=== PATIENT | female | born 1950 | race Caucasian/White ===

== ENCOUNTER 2025-01-15 16:25 | Emergency (ER) | payer MEDICARE, SELFPAY ==
--- NOTE | ~2025-01-15 | XR_ITS ---
CLINICAL HISTORY: post reduction 3 view right wrist Comparison: None Findings: Improved alignment of distal radial fracture. Stable fracture of ulnar styloid process. No dislocation. Interval cast placement. IMPRESSION: 1. Improved alignment of distal radial fracture and stable nondisplaced ulnar styloid process fracture. This document has been electronically signed by: Julia Lobato MD on 01/15/2025 23:25:30
--- NOTE | ~2025-01-15 | CT_ITS ---
CLINICAL HISTORY: Fall and hit head CT head without contrast Comparison: None Findings: Involutional change and nonspecific white matter hypodensity. No intracranial mass, midline shift, hydrocephalus, or acute hemorrhage. Orbits, paranasal sinuses, and mastoid air cells are unremarkable. No skull fracture Impression: 1. No acute findings This document has been electronically signed by: Jennifer Harris MD on 01/15/2025 17:46:57
--- NOTE | ~2025-01-15 | CT_ITS ---
CLINICAL HISTORY: Fall CT cervical spine without contrast Comparison: None Findings: Normal vertebral body alignment. Multilevel degenerative disc disease and facet osteoarthritis. No significant central canal stenosis. No acute fracture. Bone island incidentally noted at the T7 level. Visualized intracranial contents are unremarkable. There are surgical clips adjacent to the thyroid gland. Mild scarring at the lung apices. IMPRESSION: No acute cervical spine fracture. This document has been electronically signed by: Jennifer Harris MD on 01/15/2025 17:49:43
--- NOTE | ~2025-01-15 | XR_ITS ---
CLINICAL HISTORY: Fall and deformed 4 view right hand Comparison: None Findings: Intra-articular fracture of the distal radius with mild displacement, impaction and posterior angulation. Ulnar styloid avulsion fracture with minimal displacement. Osteopenia is present. There are mild arthritic changes. No erosions. No radiopaque foreign body. IMPRESSION: Acute fractures of the distal radius and distal ulna. This document has been electronically signed by: Jennifer Harris MD on 01/15/2025 17:31:40
[2025-01-15 16:38] VITALS: BP 147/73; PULSE 74; RESP 18; TEMP 36.4; O2SAT 98; BMI 32.5
--- NOTE | 2025-01-15 16:43 | ED_ITS ---
HPI - General Adult General Chief complaint: Extremity Injury, Lower Stated complaint: fell on right wrist Time Seen by Provider: 01/15/25 21:41 History of Present Illness ED Provider: Belkis GALVEZ narrative: the patient is a 74-year-old woman who normally lives in [place], [place]. She was here visiting family. She apparently tripped on a rug and fell backwards onto an outstretched right hand injuring her right wrist. She also hit her head in the fall. No loss of consciousness. She is on no anticoagulation. Her chief complaint is pain in the right wrist. No numbness or tingling in the fingers. Related Data Previous Rx's ?Medication ?Instructions ?Recorded morphine 15 mg immediate release 15 mg PO Q6H PRN pain #14 tabs 01/15/25 tablet Allergies Allergy/AdvReac Type Severity Reaction Status Date / Time Penicillins Allergy Rash Verified 01/15/25 16:40 Sulfa (Sulfonamide Allergy Rash Verified 01/15/25 16:40 Antibiotics) Review of Systems Review of Systems: Yes all other systems are reviewed and are negative [facility] Social History Social History Advance Directives: No Advance Directives Information Provided: Yes Physical Exam ED Vital Signs: Vital Signs - 24 hr 01/15/25 16:38 01/15/25 23:18 01/15/25 23:40 Temperature 97.6 F 97.8 F 97.8 F Pulse Rate 74 75 75 Respiratory Rate 18 16 16 Blood Pressure 147/73 H 134/73 134/73 Pulse Oximetry 98 95 95 Oxygen Delivery Method Room Air Room Air Room Air BMI result Body Mass Index 32.5 Const Other: The patient is awake and alert with a normal mental status. She is a pleasant and cooperative 74-year-old with the an obvious deformity of the right wrist. HENMT Other: Face is symmetrical, mucous membranes moist, no raccoon eyes, no adan sign. Eyes General: appearance normal, both eyes and all related structures Neck Other: The patient 's neck seemed benign. Resp Effort & Inspection: normal respiratory effort Auscultation: clear to auscultation bilaterally Cardio Rate: regular rate Rhythm: regular rhythm Heart sounds: S1 normal heart sound present and S2 normal heart sound present Skin Other: The skin of the right wrist is intact. There was some bruising evident. Neuro Other: The patient is awake and alert with a normal mental status. Cranial nerves are grossly intact. She has intact sensation in the fingers of the right hand. She can wiggle the fingers of the right hand but it is painful to do so. Extrem Other: The patient has swelling and ecchymosis to the skin of the right wrist where there is a silver fork type deformity. The hand is well-perfused. Course Course Course Narrative: RME: 74-year-old female presents to the ED for right wrist pain. Patient slipped and fell onto her right hand and hit her back of her head. Patient denies any loss of consciousness. Physical exam positive for right wrist deformity. Vascular neuro exam intact. Images ordered. Medications Administered Discontinued Medications Generic Name Dose Route Start Last Admin Trade Name Freq PRN Reason Stop Dose Admin Acetaminophen 650 mg 01/15/25 16:42 01/15/25 16:44 Acetaminophen 325 Mg Tablet PO 01/15/25 16:43 650 mg ONCE ONE Administration Bupivacaine HCl 10 ml 01/15/25 21:43 01/15/25 22:03 Bupivacaine Mpf 0.25 % 10 Ml Vial INFILTRATI 01/15/25 21:44 10 ml ONCE ONE Administration Procedures Orthopedic Fracture Reduction Fracture #1: Time Out Performed: Yes Side: right Fracture Reduction Location: radius Analgesia: hematoma block Technique: direct manipulation and traction/counter-traction Post Reduction X-rays Demonstrate: acceptable reduction Post-reduction neuro exam: intact Post-reduction vascular exam: intact Splint Applied: Yes Patient Tolerated Procedure: well Additional Comments: To provide traction the patient's arm was hung using Kerlix loops at the index and middle fingers to suspend the hand with the weights applied at the elbow. The patient was kept with her arm suspended with weights for about 15 minutes. I also performed some manual manipulation of the fracture. The patient was placed in a sugar-tong splint afterwards. Orthopedic Splinting/Casting Injury #1: Side: right Upper Extremity Injury Location: wrist Upper Extremity Immobilizer: sugar tong splint Additional Comments: Sugar-tong splint was made using cast padding, Orthoglass, and Doc bandages. There was molding applied with volar and ulnar deviation. The patient was then placed in a sling. The patient remained neurovascularly intact after applicat ion of the splint. Medical Decision Making Medical Decision Making MDM Narrative: The patient presents following a fall with an obvious right wrist injury. At triage a head CT, cervical spine CT, and right wrist x-ray has been ordered. The head CT and cervical spine CT are negative. The right wrist x-ray shows a distal radius fracture with dorsal angulation of the fracture segment. I explained to the patient that she had a fracture of the right wrist with some angulation that could be improved with manipulation. I explained that I would like to perform a closed reduction of the deformity. The patient consented. The patient was administered a hematoma block under sterile condit ions using 10 mL of 0.25% bupivacaine administered through a 25 gauge needle. this provided reasonably good anesthesia so that I was able to suspend the patient's right hand and apply weight is at the right elbow for traction on the fracture. I also manipulated the fracture site. after approximately 15 minutes of traction I then applied a sugar-tong splint with molding. The sugar- tong splint was comprised of cast padding, Orthoglass, and Doc bandages. A postreduction x-ray was obtained that showed improved alignment of the fracture. The patient will be provided with a disc of the x-rays. The patient will be assumed be returning to their hometown in [place]. The patient was advised to contact your PCP to help arrange follow up with either Orthopedics or hand surgery in [place]. She was provided a sling. She was advised to keep the wrist elevated. A prescription for morphine tablets was sent to a local pharmacy. Discharge Plan Discharge Clinical Impression: Closed fracture of right wrist Patient Disposition: Home, Self-Care Instructions: Wrist Fracture in Adults (ED) Additional Instructions: you had a fracture of your wrist that required some manipulation. This kind of fracture is often referred to as a Colles-tyoe fracture. A splint has been applied to your arm. Please keep your wrist elevated to the level of your heart or higher. Do not dangle your wrist. You may use Tylenol as needed for pain. I have also sent a prescription for morphine tablets to the [facility] in [place]. You will need to follow up with the an orthopedist or a hand surgeon in your hometown. I would recommend contacting your primary care doctor tomorrow to get the name of a practice with a which you can make an appointment for further care. Bring the disc of your x-rays. The orthopedist or hand surgeon will determine if you need surgery. Get checked again if you develop any concerning changes in your condition. Prescriptions: New morphine 15 mg tablet 15 mg PO Q6H PRN (Reason: pain) Qty: 14 0RF Rx Instructions: Partial Fill upon patient request. Interventions: ED Discharge Assessment Last Done: 01/15/25 23:40 Discharge Date/Time: 01/15/25 23:53 Print Language: Malay
[2025-01-15] MEDS: Acetaminophen 325 MG TABLET 650 MG PO (16:44)
--- OUTSIDE RECORDS SUMMARY | 2025-01-15 20:36 | XMS_ITS | Encounter Summary ---
Author Organization [facility] Address [address] [place] [address] Care Team Providers Care Foundry Helper Name Role Phone Tomas Gracia OD Unavailable [phone] Rodolfo Henry MD Unavailable [phone] Melissa Ruth MD Primary Care Provider Angelica Chiu MD Unavailable [phone] Vane Angeles Unavailable [phone] Boom Jauregui MD Unavailable [phone] Encounter Details Date Type Department Care Team (Late st Contact Info) Description 06/20/[address] [facility] Primary Care Family Medicine [place] [address] [place] [address] Melissa Ruth MD [address] [place] [address] Social History Tobacco Use Types Packs/Day Years Used Date Smoking Tobacco: Never Smokeless Tobacco: Never Alcohol Use Standard Drinks/Week Comments Yes 0 (1 standard drink = 0.6 oz pur e alcohol) Rare Humiliation, Afraid, Rape, and Kick questionnair e Answer Date Recorded Within the last year, have y ou been afraid of your partner or ex-partner? No 04/18/2023 Within the last year, have y ou been humiliated or emotionally abused in other ways by your partner or ex-partner? No Within the last year, have y ou been kicked, hit, slapped, or otherwise physically hurt by your partner or ex-partner? No 04/18/2023 Within the last year, have y ou been raped or forced to have any kind of sexual activity by your partner or ex-partner? No 04/18/2023 Social Connection and Isolat ion Panel [NHANES] Answer Date Recorded In a typical week, how many times do you talk on the phone with family, friends, or neighbors? Three times a week 04/18/2023 How often do you get togethe r with friends or relatives? More than three times a week 04/18/2023 How often do you attend chur or muslim services? Never 04/18/2023 Do you belong to any clubs o r organizations such as uatsdin groups, unions, fraternal or athletic groups, or school groups? Yes 04/18/2023 How often do you attend meet ings of the clubs or organizations you belong to? More than 4 times per year 04/18/2023 Are you , , di vorced, , never , or living with a partner? 04/18/2023 AUDIT-C Answer Date Recorded Q1: How often do you have a drink containing alc ohol? Monthly or less 04/18/2023 Q2: How many drinks containi ng alcohol do you have on a typical day when you are drinking? 1 or 2 04/18/2023 Q3: How often do you have si x or more drinks on one occasion? Never 04/18/2023 Overall Financial Resource Strain (CARDIA) Answe r Date Recorded How hard is it for you to pa y for the very basics like food, housing, medical care, and heating? Somewhat hard 04/18/2023 PHQ-2 Answer Date Recorded Patient Health Questionnaire-2 Score 0 01/04/2024 [facility] [place] [facility] Occup[facility] - Occupational Stress Questionnaire Answer Date Recorded Do you feel stress - tense, restless, nervous, or anxious, or unable to sleep at night because your mind is troubled all the time - these days? Not at all 04/18/2023 Exercise Vital Sign Answer Date Recorde d On average, how many days pe r week do you engage in moderate to strenuous exercise (like a brisk walk)? 5 days 04/18/2023 On average, how many minutes do you engage in exercise at this level? 40 min 04/18/2023 Hunger Vital Sign Answer Date Recorded Within the past 12 months, y ou worried that your food would run out before you got the money to buy more. Never true 06/15/20 24 Within the past 12 months, t he food you bought just didn't last and you didn't have money to get more. Never true 06/15/2024 PRAPARE - Transportation Answer Date Re corded In the past 12 months, has l ack of transportation kept you from medical appointments or from getting medications? No 11/2022 In the past 12 months, has l ack of transportation kept you from meetings, work, or from getting things needed for daily living? No 04/18/2023 Housing Stability Vital Sign Answer Aman e Recorded In the last 12 months, was t here a time when you were not able to pay the mortgage or rent on time? No 04/18/2023 In the last 12 months, how many places have you lived? 1 04/18/2023 In the last 12 months, was t here a time when you did not have a steady place to sleep or slept in a alf (including now)? No 04/18/2023 Substance Use Types Use/Week Comments No Comments No Sex and Gender Information Value Date Recorded Sex Assigned at Female 12/22/2021 6:55 PM EST Legal Sex Female 6:51 AM EST Gender Identity Female 12/22/2021 6:55 PM EST Sexual Orientation Straight 12/22/2021 6: 55 PM EST Occupation Industry Job Start Date Job End Date [employer] Not on file Not on file Not on fi le documented as of this encounter Functional Status * Are you deaf or do you have serious difficulty hearing? Answer Date of Assessment Author Status Yes 04/18/2023 10:47 PM EDT Branden Carey ctive * Are you blind or do you have serious difficulty seeing, even when wearing glasses? Answer Date of Assessment Author Status No 04/20/2014 11:14 AM Dottie Mccarthy RN Active * Do you have serious difficulty walking or climbing stairs? (5 years old or older) Answer Date of Assessment Author Status No 04/20/2014 11:14 AM EDT Dottie Mack RN Active * Do you have difficulty dressing or bathing? (5 years old or older) Answer Date of Assessment Author Status No 04/20/2014 11:14 AM EDT Dottie Mack RN Active * Because of a physical, mental, or emotional condition, do you have difficulty doing errands alone such as visiting a doctor's office or shopping? (15 years old or older) Answer Date of Assessment Author Status No 04/20/2014 11:14 AM EDT Dottie Mack RN Active documented as of this encounter Mental Status * Because of a physical, mental, or emotional condition, do you have serious difficulty concentrating, remembering, or making decisions? (5 years old or older) Answer Entry Date Author Status No 04/20/2014 11:14 AM EDT Dottie Mack RN Active documented in this encounter Plan of Treatment Not on file documented as of this encounter Visit Diagnoses Not on filedocumented in this encounter Additional Health Concerns Assessment Noted Time PHQ-9 Depression Total Score: 1 04/18/20 23 10:53 PM EDT A Depression follow-up plan has been documented for the patient 01/04/2024 10:41 AM EDT documented as of this encounter Care Teams Foundry Helper Relationship Specialty Start Date End Date Melissa Ruth MD [address] [place] [phone] PCP - General Family Medicine 07/20/23 Tomas Gracia OD [address] [place] [address] Referring Physician Optometry 01/28/18 Rodolfo Henry MD [address] [place] [address] Surgeon Otolaryngology 01/02/22 Angelica Chiu MD [address] [place] [address] [phone] Consulting Physician Endocrinology 10/03/24 Vane Angeles PAC [address] [place] [address] Physician Management Nurse Rn Urology 10/05/24 Boom Jauregui MD [address] [place] [address] Consulting Physician Urology 10/05/24 documented as of this encounter
--- OUTSIDE RECORDS SUMMARY | 2025-01-15 20:36 | XMS_ITS | Encounter Summary ---
Author Organization [facility] Address [address] [place] [address] Care Team Providers Care Yard Supervisor Cotton Gin Name Role Phone Eneida Daniels MD Primary Care Provider [phone] Vitaliy Minor MD Unavailable Unavailable Enieda Daniels MD Unavailable + Angelica Chiu MD Unavailable [phone] [facility] MD Unavailable [phone] Provider, Unknown Unavailable Unavailable Eneida Daniels MD Unavailable + Provider, Unknown Unavailable Unavailable Tomas Gracia OD Unavailable [phone] Tesha Garcia PAC Unavailable Unavailable Rodolfo Henry MD Unavailable [phone] Devante Correa MD Primary Care Provider +[phone] Melissa Ruth MD Primary Care Provider +1-2 Angelica Chiu MD Unavailable [phone] Vane Angeles PAC Unavailable [phone] Boom Jauregui MD Unavailable [phone] Encounter Details Date Type Department Care Team (Late st Contact Info) Description 09/26/2009 Hospital Visit [facility] OUTPATIENT Eneida Daniels MD [address] [place] [address] Social History Tobacco Use Types Packs/Day Years Used Date Smoking Tobacco: Never Assessed Comments Unknown Sex and Gender Information Value Date Recorded Sex Assigned at Female 12/22/2021 6:55 PM EST Legal Sex Female 6:51 AM EST Gender Identity Female 12/22/2021 6:55 PM EST Sexual Orientation Straight 12/22/2021 6: 55 PM EST documented as of this encounter Plan of Treatment Pending Results Name Type Priority Associated Diagnoses Date /Time MAMMO SCREENING BILATERAL Imaging 09/26/2009 12:52 PM EST documented as of this encounter Procedures Procedure Name Priority Date/Time Associated Diagnosis Comments MG MAMMOGRAPHY HISTORICAL RESULT 09/26/2009 12:53 PM EST MG SCREENING MAMMO BILAT DIGITAL 09/26/2009 12:52 PM EST documented in this encounter Results * MG MAMMOGRAPHY HISTORICAL RESULT (09/26/2009 12:53 PM EST) Anatomical Region Laterality Modality Other 09/26/2009 12:5 3 PM EST Narrative 09/26/2009 1:26 PM EST FROM: [address] PROCEDURE FOR: Jennifer Grimm [address] [place] [address] Home: Work: PID#: [id number] [facility] [place] [id number] : 1950 Age: 58 TO: Eneida Daniels MD [facility] Family Practice [address] [place] [address] BILATERAL DIGITAL SCREENING MAMMOGRAM WITH CAD: 09/26/2009 CLINICAL: Screening Positive family history of breast cancer. ?? Comparison is made to exams dated: ??10/02/2008 [facility] The tissue of both breasts is heterogeneously dense. This may lower the sensitivity of mammography. ?? Current study was also evaluated with a Computer Aided Detection (CAD) system. ??There are multiple benign scattered calcifications both breasts. ?? No significant masses or calcifications are seen in either breast. ?? There has been no significant interval change. IMPRESSION: BENIGN There is no mammographic evidence of malignancy. ??A 1 year screening mammogram is recommended. Maximus Head M.D. ? sma/penrad:09/26/2009 13:26:44 ?? copy to: Tesha Hampton OPERATIONS CONTROLLER Metalsmith: Jessica Jordan RT(R)(M) letter sent: ACR 1/2 Screening ?? Mammogram BI-RADS: 2 Benign ?? us Unknown Provider IMG MAMMOGRAPHY ORDERABLES Salina l Result documented in this encounter Visit Diagnoses Not on filedocumented in this encounter Additional Health Concerns Assessment Noted Time A Depression follow-up plan has been documented for the patient 05/09/2009 8:13 AM EDT documented as of this encounter Care Teams Yard Supervisor Cotton Gin Relationship Specialty Start Date End Date Eneida Daniels MD [address] [place] [address] PCP - General 08/16/12 07/17/23 Vitaliy Minor MD PCP - Hospital (change to care team) 04/20/11 09/30/11 Eneida Daniels MD [address] [place] [phone] PCP - Hospital (change to care team) 09/26/09 04/19/11 Angelica Chiu MD [address] [place] [phone] PCP - Internal Med Diab Endo (change to care team) 02/20/11 05/28/16 Jass Saez MD [address] [place]jee [address] [place] [phone] PCP - Internal Med Diab Endo (change to care team) 11/17/10 02/19/11 Provider, Unknown PCP - Hospital (change to care team) 10/01/11 10/04/11 Eneida Daniels MD [address] [place] [phone] PCP - Hospital (change to care team) 10/05/11 08/17/12 Provider, Unknown PCP - Hospital (change to care team) 08/18/12 05/20/16 Devante Correa MD [address] [place] [address] PCP - General Family Medicine 07/18/23 07/19/23 Melissa Ruth MD [address] [place] [phone] PCP - General Family Medicine 07/20/23 Tomas Gracia OD [address] [place] [address] Referring Physician Optometry 01/28/18 Tesha Garcia PAC [address] [place] [address] Physician Cardiology Rn Physician Cardiology Rn 11/15/19 Rodolfo Henry MD [address] [place] [address] Surgeon Otolaryngology 01/02/22 Angelica Chiu MD [facility] [address] [place] [phone] Consulting Physician Endocrinology 10/03/24 Vane Angeles, JENNIFER [address] [place] [address] Physician Cardiology Rn Urology 10/05/24 Boom Jauregui MD [address] [place] [address] Consulting Physician Urology 10/05/24 documented as of this encounter
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
--- OUTSIDE RECORDS SUMMARY | 2025-01-15 20:36 | XMS_ITS | Encounter Summary ---
Author Organization [facility] Address [address] [place] [address] Care Team Providers Care Wound Treatment Rn Name Role Phone Eneida Daniels MD Primary Care Provider [phone] Tomas Gracia OD Unavailable [phone] Tesha Garcia PAC Unavailable Unavailable Rodolfo Henry MD Unavailable [phone] Devante Correa MD Primary Care Provider [phone] Melissa Ruth MD Primary Care Provider [phone] Angelica Chiu MD Unavailable [phone] Vane Angeles PAC Unavailable [phone] Boom Jauregui MD Unavailable [phone] Encounter Details Date Type Department Care Team (Late st Contact Info) Description 06/05/2020 Orders Only [facility] Primary Care Family Medicine [address] [phone] Celina Tripp [place] Social History Tobacco Use Types Packs/Day Years Used Date Smoking Tobacco: Never Smokeless Tobacco: Never Alcohol Use Standard Drinks/Week Comments Yes 0 (1 standard drink = 0.6 oz pur e alcohol) Rare PHQ-2 Answer Date Recorded PHQ-2 Score 1 09/18/2019 Substance Use Types Use/Week Comments No Comments No Sex and Gender Information Value Date Recorded Sex Assigned at Female 12/22/2021 6:55 PM EST Legal Sex Female 6:51 AM EST Gender Identity Female 12/22/2021 6:55 PM EST Sexual Orientation Straight 12/22/2021 6: 55 PM EST 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 Answer Date of Assessment Author Status No 09/15/2019 12:08 PM EST Mychart Acti ve * Are you blind or do you have serious difficulty seeing, even when wearing glasses? Answer Date of Assessment Author Status No 04/20/2014 11:14 AM EDT Dottie Mack RN Active * Do you have serious difficulty walking or climbing stairs? (5 years old or older) Answer Date of Assessment Author Status No 04/20/2014 11:14 AM Dottie Mccarthy RN Active * Do you have difficulty dressing or bathing? (5 years old or older) Answer Date of Assessment Author Status No 04/20/2014 11:14 AM Dottie Mccarthy RN Active * Because of a physical, mental, or emotional condition, do you have difficulty doing errands alone such as visiting a doctor's office or shopping? (15 years old or older) Answer Date of Assessment Author Status No 04/20/2014 11:14 AM Dottie Mccarthy RN Active documented as of this encounter Mental Status * Because of a physical, mental, or emotional condition, do you have serious difficulty concentrating, remembering, or making decisions? (5 years old or older) Answer Entry Date Author Status No 04/20/2014 11:14 AM Dottie Mccarthy RN Active documented in this encounter Plan of Treatment Not on file documented as of this encounter Visit Diagnoses Not on filedocumented in this encounter Additional Health Concerns Assessment Noted Time A Depression follow-up plan has been documented for the patient 09/18/2019 2:24 PM EST documented as of this encounter Care Teams Wound Treatment Rn Relationship Specialty Start Date End Date Eneida Daniels MD [address] [place] [address] PCP - General 08/16/12 07/17/23 Devante Correa MD [address] [place] [phone] PCP - General Family Medicine 07/18/23 07/19/23 Melissa Ruth MD [address] [place] [phone] PCP - General Family Medicine 07/20/23 Tomas Gracia OD [address] [place] [address] Referring Physician Optometry 01/28/18 Tesha Garcia PAC [address] [place] [address] Physician Infrastructure Director Physician Infrastructure Director 11/15/19 Rodolfo Henry MD [address] [place] [address] Surgeon Otolaryngology 01/02/22 Angelica Chiu MD [facility] [address] [place] [phone] Consulting Physician Endocrinology 10/03/24 Vane Angeles, JENNIFER [address] [place] [phone] Physician Infrastructure Director Urology 10/05/24 Boom Jauregui MD [address] [place] [phone] Consulting Physician Urology 10/05/24 documented as of this encounter
--- OUTSIDE RECORDS SUMMARY | 2025-01-15 20:36 | XMS_ITS | Encounter Summary ---
[facility] Address [address] [place] [address] Care Team Providers Care Materials Branch Chief Name Role Phone Eneida Daniels MD Primary Care Provider [phone] Tomas Gracia OD Unavailable [phone] Rodolfo Henry MD Unavailable [phone] Devante Correa MD Primary Care Provider [phone] Melissa Ruth MD Primary Care Provider [phone] Angelica Chiu MD Unavailable [phone] Vane Angeles Unavailable [phone] Boom Jauregui MD Unavailable [phone] Encounter Details Date Type Department Care Team (Late st Contact Info) Description 02/10/2022 Orders Only [facility] Primary Care Family Medicine [address] [address] Doc Urias Social History Tobacco Use Types Packs/Day Years Used Date Smoking Tobacco: Never Smokeless Tobacco: Never Alcohol Use Standard Drinks/Week Comments Yes 0 (1 standard drink = 0.6 oz pur e alcohol) Rare Humiliation, Afraid, Rape, and Kick questionnair e Answer Date Recorded Within the last year, have y ou been afraid of your partner or ex-partner? No 12/16/2021 Within the last year, have y ou been humiliated or emotionally abused in other ways by your partner or ex-partner? No Within the last year, have y ou been kicked, hit, slapped, or otherwise physically hurt by your partner or ex-partner? No 12/16/2021 Within the last year, have y ou been raped or forced to have any kind of sexual activity by your partner or ex-partner? No 12/16/2021 Social Connection and Isolat ion Panel [NHANES] Answer Date Recorded In a typical week, how many times do you talk on the phone with family, friends, or neighbors? More than three times a week 12/16/2021 How often do you get togethe r with friends or relatives? Three times a week 12/16/2021 How often do you attend chur or yazidism services? Never 12/16/2021 Do you belong to any clubs o r organizations such as druze groups, unions, fraternal or athletic groups, or school groups? Yes 12/16/2021 How often do you attend meet ings of the clubs or organizations you belong to? More than 4 times per year 12/16/2021 Are you , , di vorced, , never , or living with a partner? 12/16/2021 AUDIT-C Answer Date Recorded Q1: How often do you have a drink containing alc ohol? Monthly or less 12/16/2021 Q2: How many drinks containi ng alcohol do you have on a typical day when you are drinking? 1 or 2 12/16/2021 Q3: How often do you have si x or more drinks on one occasion? Never 12/16/2021 Overall Financial Resource Strain (CARDIA) Answe r Date Recorded How hard is it for you to pa y for the very basics like food, housing, medical care, and heating? Somewhat hard 12/16/2021 PHQ-2 Answer Date Recorded Patient Health Questionnaire-2 Score 0 12/31/2021 [facility] [place] of Occupat ional Health - Occupational Stress Questionnaire Answer Date Recorded Do you feel stress - tense, restless, nervous, or anxious, or unable to sleep at night because your mind is troubled all the time - these days? Only a little 12/16/2021 Exercise Vital Sign Answer Date Recorde d On average, how many days pe r week do you engage in moderate to strenuous exercise (like a brisk walk)? 5 days 12/16/2021 On average, how many minutes do you engage in exercise at this level? 40 min 12/16/2021 Hunger Vital Sign Answer Date Recorded Within the past 12 months, y ou worried that your food would run out before you got the money to buy more. Never true 01/01/20 22 Within the past 12 months, t he food you bought just didn't last and you didn't have money to get more. Never true 12/31/2021 PRAPARE - Transportation Answer Date Re corded In the past 12 months, has l ack of transportation kept you from medical appointments or from getting medications? No 10/2021 In the past 12 months, has l ack of transportation kept you from meetings, work, or from getting things needed for daily living? No 12/16/2021 Housing Stability Vital Sign Answer Aman e Recorded In the last 12 months, was t here a time when you were not able to pay the mortgage or rent on time? No 12/16/2021 In the last 12 months, how many places have you lived? 1 12/16/2021 In the last 12 months, was t here a time when you did not have a steady place to sleep or slept in a longterm (including now)? 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 Answer Date of Assessment Author Status Yes 12/16/2021 10:14 AM EST Mychart Acti ve * Are you blind or do you have serious difficulty seeing, even when wearing glasses? Answer Date of Assessment Author Status No 04/20/2014 11:14 AM MARYT Dottie Mack RN Active * Do you [...] Mack RN Active documented in this encounter Miscellaneous Notes * Telephone Encounter - Eneida Daniels MD - 02/10/2022 4:11 PM EDT Intermittently elevated alk phos, low globulin. Normal liver, gallstones noted on CT 10/2021. Continue to monitor. Released with comment to My Chart. documented in this encounter Plan of Treatment Not on file documented as of this encounter Procedures Procedure Name Priority Date/Time Associated Diagnosis Comments HEMOGLOBIN A1C Routine 02/10/2022 9:17 AM EDT Obesity (BMI 30.0-34.9) LIPID PANEL Routine 02/10/2022 9:17 AM EDT Hypertension COMPREHENSIVE METABOLIC PANEL Routine 02/10/2022 9:17 AM EDT Hypokalemia Pure hypercholesterolemia documented in this encounter Results * HEMOGLOBIN A1C (02/10/2022 9:17 AM EDT) Hemoglobin A1C 5.2 4.5 - 5.7 % [facility] Comment: Falsely low percent A1c may be seen with abnormal hemoglobin variants or shortened erythrocyte survival (such as hemolysis, blood loss and ). Average Plasma Glucose 103 82 - 117 mg/dL [facility] Blood 02/10/2022 9:17 AM EDT 02/10/2022 9:18 AM EDT us Eneida Daniels MD CHEMISTRY ORDERABLES Final Result [facility] [address] [place], [place] [id number] * (ABNORMAL) COMPREHENSIVE METABOLIC PANEL (02/10/2022 9:17 AM EDT) Sodium 141 133 - 145 mEq/L [facility] Potassium 4.3 3.3 - 5.3 mEq/L [facility] Chloride 105 96 - 108 mEq/L [facility] Carbon Dioxide 25 21 - 30 mEq/L [facility] Anion Gap 11 mEq/L [facility] Blood Urea Nitrogen 17 6 - 19 mg/dL [facility] Creatinine 0.90 0.50 - 1.30 mg/dL [facility] BUN Creatinine Ratio 18.9 [facility] Glucose 93 70 - 99 mg/dL [facility] Protein 5.9 5.9 - 8.4 g/dL [facility] Albumin 4.2 3.2 - 5.2 g/dL [facility] Globulin 1.7(L) 2.0 - 3.5 g/dL [facility] Albumin/Globuli n Ratio 2.5 [facility] Bilirubin 1.2(H) 0.0 - 1.0 mg/dL [facility] Calcium 9.2 8.6 - 10.4 mg/dL [facility] Alkaline Phosphatase 127(H) 39 - 117 U/L [facility] AST 20 0 - 37 U/L [facility] ALT 25 0 - 40 U/L [facility] EGFR (MDRD) >60 >60 [facility] Comment: -- eGFR UNITS OF MEASURE -- mL/min/1.73m(2) Comment EGFR SEE BELOW [facility] Comment: The EGFR calculation has not been validated in patients older than 70, but can be used as an orientative information. Blood 02/10/2022 9:17 AM EDT 02/10/2022 9:18 AM EDT Eneida Daniels MD CHEMISTRY ORDERABLES Final Result Performing Organization Address [facility] de Phone Number [facility] [address] [place] [address] * LIPID PANEL (02/10/2022 9:17 AM EDT) [facility] Cholesterol 125 112 - 199 mg/dL [facility] Triglycerides 134 mg/dL [facility] Comment: REFERENCE RANGE: < 150 mg/dl FOR FASTING < 175 mg/dl FOR NON-FASTING (BASED ON LITERATURE) HDL Cholesterol 43 40 - 100 mg/dL [facility] Comment: HDL REFERENCE RANGES Low: ? <40 mg/dL Normal: ?40-60 mg/dL Desirable: >60 mg/dL LDL Cholesterol Calculation 55 0 - 99 mg/dL [facility] Non HDL Cholesterol Calculation 82.0 0.0 - 129.0 mg/dL [facility] Blood 02/10/2022 9:17 AM EDT 02/10/2022 9:18 AM EDT Result [facility] Eneida Daniels MD CHEMISTRY ORDERABLES Final Result Performing Organization Address [facility] Co de Phone Number [facility] [address] [place] [address] documented in this encounter Visit Diagnoses Diagnosis Hypertension Essential hypertension, benign Hypokalemia Hypopotassemia Pure hypercholesterolemia Obesity (BMI 30.0-34.9) Obesity, unspecified documented in this encounter Additional Health Concerns Assessment Noted Time PHQ-9 Depression Total Score: 0 12/17/19 22 10:19 AM EST A Depression follow-up plan has been documented for the patient 07/23/2021 8:46 AM EDT documented as of this encounter Care Teams Materials Branch Chief Relationship Specialty Start Date End Date Eneida Daniels MD [address] [place] [address] PCP - General 08/16/12 07/17/23 Devante Correa MD [address] [place] [address] PCP - General Family Medicine 07/18/23 07/19/23 Melissa Ruth MD [address] [place] [address] PCP - General Family Medicine 07/20/23 Tomas Gracia OD [address] [place] [address] Referring Physician Optometry 01/28/18 Rodolfo Henry MD [address] [place] [address] Surgeon Otolaryngology 01/02/22 Angelica Chiu MD [address] [place] [phone] Consulting Physician Endocrinology 10/03/24 Vane Angeles PAC [address] [place] [address] Physician Cafe Server Urology 10/05/24 Boom Jauregui MD [address] [place] [address] Consulting Physician Urology 10/05/24 documented as of this encounter
--- OUTSIDE RECORDS SUMMARY | 2025-01-15 20:36 | XMS_ITS | Encounter Summary ---
Author Organization [facility] Address [address] [place] [address] Care Team Providers Care Line Haul Owner Operator Name Role Phone Eneida Daniels MD Primary Care Provider [phone] Angelica Chiu MD Unavailable [phone] Provider, Unknown Unavailable Unavailable Tomas Gracia OD Unavailable [phone] Tesha Garcia PAC Unavailable Unavailable Rodolfo Henry MD Unavailable [phone] Devante Correa MD Primary Care Provider [phone] Melissa Ruth MD Primary Care Provider [phone] Angelica Chiu MD Unavailable [phone] Vane Angeles PAC Unavailable [phone] Boom Jauregui MD Unavailable [phone] Encounter Details Date Type Department Care Team (Late st Contact Info) Description 02/03/2014 Orders Only [facility] Primary Care Family Medicine [place] [address] [place] [address] Eneida Daniels MD [address] [place] [address] Social History Tobacco Use Types Packs/Day Years Used Date Smoking Tobacco: Never Smokeless Tobacco: Never Alcohol Use Standard Drinks/Week Comments Yes 0 (1 standard drink = 0.6 oz pur e alcohol) Rare Substance Use Types Use/Week Comments No Comments No Sex and Gender Information Value Date Recorded Sex Assigned at Female 12/22/2021 6:55 PM EST Legal Sex Female 6:51 AM EST Gender Identity Female 12/22/2021 6:55 PM EST Sexual Orientation Straight 12/22/2021 6: 55 PM EST 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 Patient has appt to review results soon. documented in this encounter Plan of Treatment Not on file documented as of this encounter Procedures Procedure Name Priority Date/Time Associated Diagnosis Comments BASIC METABOLIC PANEL Routine 07/10/2014 9:48 AM EDT Hypertension documented in this encounter Results * BASIC METABOLIC PANEL (07/10/2014 9:48 AM EDT) Sodium 141 133 - 145 mEq/L [facility] Potassium 4.4 3.3 - 5.3 mEq/L [facility] Chloride 104 96 - 108 mEq/L [facility] Carbon Dioxide 24 22 - 29 mEq/L [facility] Anion Gap 13 7 - 16 mEq/L [facility] Glucose 95 70 - 99 mg/dL [facility] Blood Urea Nitrogen 19 6 - 19 mg/dL [facility] Creatinine 0.93 0.50 - 1.30 mg/dL [facility] Creatinine Ratio 20.4 [facility] Calcium 9.9 8.6 - 10.4 mg/dL [facility] EGFR Non- >60 >60 [facility] EGFR >60 >60 [facility] Comment: -- eGFR UNITS OF MEASURE -- mL/min/1.73m(2) Comment EGFR SEE BELOW [facility] Comment: Clinical use of the eGFR result is not recommended if; - the patient's basal creatinine production is very abnormal, such as extremes of body size or muscle mass (eg. obese, severely malnourished, amputees, parapalegics, or other muscle-wasting diseases). - the patient has an unusual dietary intake (eg. vegetarian, creatine supplements). - the patient has an unstable creatinine level (eg. women, patients with serious co-morbid conditions, and hospitalized ?patients, particularly those with acute renal failure). Blood specimen (specimen) 07/10/2014 9:48 AM EDT 07/10/2014 1:27 PM EDT us Eneida Daniels MD CHEMISTRY ORDERABLES Final Result [facility] [place] [id number] [place] [address] documented in this encounter Visit Diagnoses Diagnosis Hypertension Essential hypertension, benign documented in this encounter Additional Health Concerns Assessment Noted Time A Depression follow-up plan has been documented for the patient 05/09/2009 8:13 AM EDT documented as of this encounter Care Teams Line Haul Owner Operator Relationship Specialty Start Date End Date Eneida Daniels MD [address] [place] [address] PCP - General 08/16/12 07/17/23 Angelica Chiu MD [address] [place] [phone] PCP - Internal Med Diab Endo (change to care team) 02/20/11 05/28/16 Provider, Unknown PCP - Hospital (change to care team) 08/18/12 05/20/16 Devante Correa MD [address] [place] [address] PCP - General Family Medicine 07/18/23 07/19/23 Melissa Ruth MD [address] [place] [address] PCP - General Family Medicine 07/20/23 Tomas Gracia OD [address] [place] [address] Referring Physician Optometry 01/28/18 Tesha Garcia, PAC [address] [place] [address] Physician Electrician'S Assistant Physician Electrician'S Assistant 11/15/19 Rodolfo Henry MD [address] [place] [address] Surgeon Otolaryngology 01/02/22 Angelica Chiu MD [facility] [address] [place] [phone] Consulting Physician Endocrinology 10/03/24 Vane Angeles, [facility] [address] [place] [address] Physician Electrician'S Assistant Urology 10/05/24 Boom Jauregui MD [address] [place] [address] Consulting Physician Urology 10/05/24 documented as of this encounter
--- OUTSIDE RECORDS SUMMARY | 2025-01-15 20:36 | XMS_ITS | Encounter Summary ---
Author Organization [facility] Address [address] [place] [address] Care Team Providers Care Assistant Warehouse Manager Name Role Phone Eneida Daniels MD Primary Care Provider [phone] Angelica Chiu MD Unavailable [phone] Provider, Unknown Unavailable Unavailable Tomas Gracia OD Unavailable [phone] Tesha Garcia PAC Unavailable Unavailable Rodolfo Henry MD Unavailable [phone] Devante Correa MD Primary Care Provider [phone] Melissa Ruth MD Primary Care Provider [phone] Angelica Chiu MD Unavailable [phone] Vane Angeles PAC Unavailable [phone] Boom Jauregui MD Unavailable [phone] Encounter Details Date Type Department Care Team (Late st Contact Info) Description 09/27/2012 Orders Only [facility] Primary Care Family Medicine [place] [address] [place] [address] Eneida Daniels MD [address] [place] [address] Social History Tobacco Use Types Packs/Day Years [...] 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 on 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 Not on fi le documented as of this encounter Progress Notes * Eneida Daniels MD - 12/29/2012 12:21 PM EDTQuick Note: My Chart results released/note sent documented in this encounter Plan of Treatment Not on file documented as of this encounter Procedures Procedure Name Priority Date/Time Associated Diagnosis Comments LIPID PANEL Routine 12/26/2012 8:23 AM EDT Hyperlipidemia Hypokalemia Hypertension Osteoporosis documented in this encounter Results * (ABNORMAL) LIPID PANEL (12/26/2012 8:23 AM EDT) Cholesterol 177 112 - 199 MG/DL [facility] Triglycerides 171(H) 28 - 149 MG/DL [facility] HDL Cholesterol 46 40 - 200 MG/DL [facility] LDL Cholesterol Calculation 97 57 - 99 MG/DL [facility] Comment: TESTING LOCATION, ADDRESS AND ENDORSEMENT CLERKSPIRAL WINDING MACHINE HELPER MAY BE OBTAINED BY CALLING [facility] AT Blood specimen (specimen) 12/26/2012 8:23 AM EDT 12/26/2012 1:19 PM EDT Narrative [facility] - 12/26/2012 1:42 PM EDT DID THE PATIENT FAST FOR 12-14 HOURS? : YES ??PATIENT DID FAST FOR 12 TO 14 HOURS DID PATIENT NOT CONSUME ALCOHOL FOR 24 HOURS? : YES - PATIENT ABSTAINED FROM ALCOHOL FOR 24 HOURS us Eneida Daniels MD CHEMISTRY ORDERABLES Final Result [facility] [address] [place] [address] documented in this encounter Visit Diagnoses Diagnosis Hyperlipidemia Other and unspecified hyperlipidemia Hypokalemia Hypopotassemia Hypertension Essential hypertension, benign Osteoporosis Osteoporosis, unspecified documented in this encounter Additional Health Concerns Assessment Noted Time A Depression follow-up plan has been documented for the patient 05/09/2009 8:13 AM EDT documented as of this encounter Care Teams Assistant Warehouse Manager Relationship Specialty Start Date End Date Eneida Daniels MD [address] [place] [address] PCP - General 08/16/12 07/17/23 Angelica Chiu MD [facility] [address] [place] [phone] PCP - Internal Med Diab Endo (change to care team) 02/20/11 05/28/16 Provider, Unknown PCP - Hospital (change to care team) 08/18/12 05/20/16 Devante Correa MD [address] [place] [phone] PCP - General Family Medicine 07/18/23 07/19/23 Melissa Ruth MD [address] [place] [address] PCP - General Family Medicine 07/20/23 Tomas Gracia OD [address] [place] [address] Referring Physician Optometry 01/28/18 Tesha Garcia PAC [address] [place] [address] Physician Dirt Contractor Physician Dirt Contractor 11/15/19 Rodolfo Henry MD [address] [place] [address] [place] [address] Surgeon Otolaryngology 01/02/22 Angelica Chiu MD [address] [place] [address] Consulting Physician Endocrinology 10/03/24 Vane Angeles PAC [address] [place] [address] Physician Dirt Contractor Urology 10/05/24 Boom Jauregui MD [address] [place] [address] Consulting Physician Urology 10/05/24 documented as of this encounter
--- OUTSIDE RECORDS SUMMARY | 2025-01-15 20:36 | XMS_ITS | Encounter Summary ---
Author Organization [facility] Address [address] [place] [address] Care Team Providers Care Falafel Cart Cook Name Role Phone Eneida Daniels MD Primary Care Provider [phone] Tomas Gracia OD Unavailable [phone] Tesha Garcia PAC Unavailable Unavailable Rodolfo Henry MD Unavailable [phone] Devante Correa MD Primary Care Provider [phone] Melissa Ruth MD Primary Care Provider [phone] Angelica Chiu MD Unavailable [phone] Vane Angeles PAC Unavailable [phone] Boom Jauregui MD Unavailable [phone] Encounter Details Date Type Department Care Team (Late st Contact [facility]) Description 05/01/2017 Orders Only [facility] Primary Care Family Medicine [place] [address] [place] [address] Eneida Daniels MD [address] [place] [address] Social History Tobacco Use Types Packs/Day Years [...] 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 Answer Date of Assessment Author Status No 04/20/2014 11:14 AM EDT Dottie Mack RN Active * Are you blind or do you [...] Telephone Encounter - Eneida Daniels MD - 06/03/2017 9:13 PM EDTQuick Note: Discussed at OV documented in this encounter Plan of Treatment Not on file documented as of this encounter Procedures Procedure Name Priority Date/Time Associated Diagnosis Comments LIPID PANEL Routine 05/25/2017 9:00 AM EDT Pure hypercholesterolemia documented in this encounter Results * LIPID PANEL (05/25/2017 9:00 AM EDT) Cholesterol 137 112 - 199 mg/dL [facility] Triglycerides 173 mg/dL [facility] Comment: REFERENCE RANGE: < 150 mg/dl FOR FASTING < 175 mg/dl FOR NON-FASTING (BASED ON LITERATURE) HDL Cholesterol 42 40 - 200 mg/dL [facility] LDL Cholesterol Calculation 60 57 - 99 mg/dL [facility] Blood specimen (specimen) 05/25/2017 9:00 AM EDT 05/25/2017 12:24 PM EDT us Eneida Daniels MD CHEMISTRY ORDERABLES Final Result [facility] [address] [place] [address] documented in this encounter Visit Diagnoses Diagnosis Pure hypercholesterolemia documented in this encounter Additional Health Concerns Assessment Noted Time A Depression follow-up plan has been documented for the patient 05/09/2009 8:13 AM EDT documented as of this encounter Care Teams Falafel Cart Cook Relationship Specialty Start Date End Date Eneida Daniels MD [address] [place] [address] PCP - General 08/16/12 07/17/23 Devante Correa MD [address] [place] [address] PCP - General Family Medicine 07/18/23 07/19/23 Melissa Ruth MD [address] [place] [address] PCP - General Family Medicine 07/20/23 Tomas Gracia OD [address] [place] [address] Referring Physician Optometry 01/28/18 Tesha Garcia, PAC [address] [place] [address] Physician Yeast Supervisor Physician Yeast Supervisor 11/15/19 Rodolfo Henry MD [address] [place] [address] Surgeon Otolaryngology 01/02/22 Angelica Chiu MD [facility] [address] [place] [phone] Consulting Physician Endocrinology 10/03/24 Vane Angeles, [facility] [address] [place] [address] Physician Yeast Supervisor Urology 10/05/24 Boom Jauregui MD [address] [place] [address] Consulting Physician Urology 10/05/24 documented as of this encounter
--- OUTSIDE RECORDS SUMMARY | 2025-01-15 20:36 | XMS_ITS | Encounter Summary ---
[facility] Address [address] [place] [address] Care Team Providers Care Gym Teacher Name Role Phone Eneida Daniels MD Primary Care Provider [phone] Vitaliy Minor MD Unavailable Unavailable Eneida Daniels MD Unavailable + Angelica Chiu MD Unavailable [phone] [facility] MD Unavailable [phone] Provider, Unknown Unavailable Unavailable Eneida Daniels MD Unavailable + Provider, Unknown Unavailable Unavailable Tomas Gracia OD Unavailable [phone] Tesha Garcia PAC Unavailable Unavailable Rodolfo Henry MD Unavailable [phone] Devante Correa MD Primary Care Provider +[phone] Melissa Ruth MD Primary Care Provider +1-2 Angelica Chiu MD Unavailable + [phone] Vane Angeles PAC Unavailable [phone] Boom Jauregui MD Unavailable [phone] Encounter Details Date Type Department Care Team (Late st Contact Info) Description 09/25/2008 Hospital Visit [facility] OUTPATIENT Eneida Daniels MD [address] [place] [address] Social History Tobacco Use Types Packs/Day Years [...] Diagnoses Date /Time MAMMO SCREENING BILATERAL Imaging 09/25/2008 10:50 AM EST documented as of this encounter Procedures Procedure Name Priority Date/Time Associated Diagnosis Comments MG SCREENING MAMMO BILAT DIGITAL 09/25/2008 10:50 AM EST documented in this encounter Visit Diagnoses Not on filedocumented in this encounter Care Teams Gym Teacher Relationship Specialty Start Date End Date Eneida Daniels MD [address] [place] [address] PCP - General 08/16/12 07/17/23 Vitaliy Minor MD PCP - Hospital (change to care team) 04/20/11 09/30/11 Eneida Daniels MD [address] [place] [phone] PCP - Hospital (change to care team) 09/26/09 04/19/11 Angelica Chiu MD [facility] [address] [place] [phone] PCP - Internal Med Diab Endo (change to care team) 02/20/11 05/28/16 Jass Saez MD [address] Chatterjee [address] [place] [phone] PCP - Internal Med Diab Endo (change to care team) 11/17/10 02/19/11 Provider, Unknown PCP - Hospital (change to care team) 10/01/11 10/04/11 Eneida Daniels MD [address] [place] [address] PCP - Hospital (change to care team) 10/05/11 08/17/12 Provider, Unknown PCP - Hospital (change to care team) 08/18/12 05/20/16 Devante Correa MD [address] [place] [phone] PCP - General Family Medicine 07/18/23 07/19/23 Melissa Ruth MD [address] [place] [address] PCP - General Family Medicine 07/20/23 Tomas Gracia OD [address] [place] [address] Referring Physician Optometry 01/28/18 Tesha Garcia PAC [address] [place] [address] Physician Undertaker Assistant Physician Undertaker Assistant 11/15/19 Rodolfo Henry MD [address] [place] [address] Surgeon Otolaryngology 01/02/22 Angelica Chiu MD [address] [place] [phone] Consulting Physician Endocrinology 10/03/24 Vane Angeles, JENNIFER [address] [place] [address] Physician Undertaker Assistant Urology 10/05/24 Boom Jauregui MD [address] [place] [address] Consulting Physician Urology 10/05/24 documented as of this encounter
--- OUTSIDE RECORDS SUMMARY | 2025-01-15 20:36 | XMS_ITS | Encounter Summary ---
[facility] Organization [facility] Address [address] [place] [address] Care Team Providers Care Nail Maker Name Role Phone Eneida Daniels MD Primary Care Provider [phone] Tomas Gracia OD Unavailable [phone] Tesha Garcia PAC Unavailable Unavailable Rodolfo Henry MD Unavailable [phone] Devante Correa MD Primary Care Provider [phone] Melissa Ruth MD Primary Care Provider [phone] Aneglica Chiu MD Unavailable [phone] Vane Angeles PAC Unavailable [phone] Boom Jauregui MD Unavailable [phone] Encounter Details Date Type Department Care Team (Late st Contact Info) Description 10/24/2020 Orders Only [facility] Primary Care Family Medicine [address] [phone] Celina Tripp MA Social History Tobacco Use Types Packs/Day Years Used Date Smoking Tobacco: Never Smokeless Tobacco: Never Alcohol Use Standard Drinks/Week Comments Yes 0 (1 standard drink = 0.6 oz pur e alcohol) Rare PHQ-2 Answer Date Recorded PHQ-2 Score 1 10/11/2020 Substance Use Types Use/Week Comments No Comments No Sex and Gender Information Value Date Recorded Sex Assigned at Female 12/22/2021 6:55 PM EST Legal Sex Female 6:51 AM EST Gender Identity Female 12/22/2021 6:55 PM EST Sexual Orientation Straight 12/22/2021 6: 55 PM EST 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 Answer Date of Assessment Author Status Yes 10/11/2020 10:01 AM EST Mychart Acti ve * Are [...] AM MARYT Dottie Mack RN Active * Because of [...] Telephone Encounter - Eneida Daniels MD - 11/05/2020 8:55 AM EST Released with comment to My Chart. documented in this encounter Plan of Treatment Not on file documented as of this encounter Procedures Procedure Name Priority Date/Time Associated Diagnosis Comments COMPREHENSIVE METABOLIC PANEL Routine 10/24/2020 8:23 AM EST Hypokalemia Pure hypercholesterolem ia Hypertension documented in this encounter Results * (ABNORMAL) COMPREHENSIVE METABOLIC PANEL (10/24/2020 8:23 AM EST) Sodium 145 133 - 145 mEq/L [facility] Potassium 4.1 3.3 - 5.3 mEq/L [facility] Chloride 110(H) 96 - 108 mEq/L [facility] Carbon Dioxide 23 21 - 30 mEq/L [facility] Anion Gap 12 mEq/L [facility] Blood Urea Nitrogen 15 6 - 19 mg/dL [facility] Creatinine 1.07 0.50 - 1.30 mg/dL [facility] BUN Creatinine Ratio 14.0 [facility] Glucose 102(H) 70 - 99 mg/dL [facility] Protein 6.1 5.9 - 8.4 g/dL [facility] Albumin 4.3 3.2 - 5.2 g/dL [facility] Globulin 1.8(L) 2.0 - 3.5 g/dL [facility] Albumin/Globuli n Ratio 2.4 [facility] Bilirubin 1.1(H) 0.0 - 1.0 mg/dL [facility] Calcium 9.3 8.6 - 10.4 mg/dL [facility] Alkaline Phosphatase 137(H) 39 - 117 U/L [facility] AST 27 0 - 37 U/L [facility] ALT 33 0 - 40 U/L [facility] EGFR Non- 50(A) >60 [facility] EGFR >60 >60 [facility] Comment: -- eGFR UNITS OF MEASURE -- mL/min/1.73m(2) Comment EGFR SEE BELOW [facility] Comment: The EGFR calculation has not been validated in patients older than 70, but can be used as an orientative information. Blood 10/24/2020 8:23 AM EST 10/24/2020 9:13 PM EST us Eneida Daniels MD CHEMISTRY ORDERABLES Final Result [facility] [address] [place] [address] documented in this encounter Visit Diagnoses Diagnosis Hypokalemia Hypopotassemia Pure hypercholesterolemia Hypertension Essential hypertension, benign documented in this encounter Additional Health Concerns Assessment Noted Time A Depression follow-up plan has been documented for the patient 09/18/2019 2:24 PM EST documented as of this encounter Care Teams Nail Maker Relationship Specialty Start Date End Date Eneida Daniels MD [address] [place] [address] PCP - General 08/16/12 07/17/23 Devante Correa MD [address] [place] [phone] PCP - General Family Medicine 07/18/23 07/19/23 Melissa Ruth MD [address] [place] [address] PCP - General Family Medicine 07/20/23 Tomas Gracia OD [address] [place] [address] Referring Physician Optometry 01/28/18 Tesha Garcia PAC [address] [place] [address] Physician Seed Analysis Laboratory Assistant Physician Seed Analysis Laboratory Assistant 11/15/19 Rodolfo Henry MD [address] [place] [address] Surgeon Otolaryngology 01/02/22 Angelica Chiu MD [facility] [address] [place] [address] [phone] Consulting Physician Endocrinology 10/03/24 Vane Angeles, PAC [address] [place] [address] Physician Seed Analysis Laboratory Assistant Urology 10/05/24 Boom Jauregui MD [address] [place] [address] Consulting Physician Urology 10/05/24 documented as of this encounter
--- OUTSIDE RECORDS SUMMARY | 2025-01-15 20:36 | XMS_ITS | Encounter Summary ---
Author Organization [facility] Address [address] [place] [address] Care Team Providers Care Dna Sequencing Associate Name Role Phone Eneida Daniels MD Primary Care Provider [phone] Vitaliy Minor MD Unavailable Unavailable Eneida Daniels MD Unavailable + Angelica Chiu MD Unavailable [phone] [facility] Tan MD Unavailable [phone] Provider, Unknown Unavailable Unavailable Eneida Daniels MD Unavailable + Provider, Unknown Unavailable Unavailable Tomas Gracia OD Unavailable [phone] Tesha Garcia PAC Unavailable Unavailable Rodolfo Henry MD Unavailable [phone] Devante Correa MD Primary Care Provider +1-2 Melissa Ruth MD Primary Care Provider +1-2 Angelica Chiu MD Unavailable + [phone] Vane Angeles PAC Unavailable [phone] Boom Jauregui MD Unavailable [phone] Encounter Details Date Type Department Care Team (Late st Contact Info) Description 09/30/2010 Hospital Visit [facility] OUTPATIENT Eneida Daniels MD [address] [place] [address] Social History Tobacco Use Types Packs/Day Years Used Date Smoking Tobacco: Never Assessed Comments No Sex and Gender Information Value Date Recorded Sex Assigned at Female 12/22/2021 6:55 PM EST Legal Sex Female 6:51 AM EST Gender Identity Female 12/22/2021 6:55 PM EST Sexual Orientation Straight 12/22/2021 6: 55 PM EST documented as of this encounter Plan of Treatment Not on file documented as of this encounter Procedures Procedure Name Priority Date/Time Associated Diagnosis Comments MG SCREENING MAMMO BILAT DIGITAL 09/30/2010 8:33 AM EST documented in this encounter Results * MAMMO SCREENING BILATERAL (09/30/2010 8:33 AM EST) Anatomical Region Laterality Modality Breast Mammography 09/30/2010 8:33 AM EST Narrative 09/30/2010 9:12 AM EST ? DATE: ?09/30/2010 ?8:33 ? ORDERED EXAM: ?MAMMOGRAM DIGITAL SCREENING ? BILATERAL DIGITAL SCREENING MAMMOGRAM WITH CAD: 09/30/2010 ? CLINICAL: Screening Mammogram. ? Comparison is made to exams dated: ??09/26/2009 and 09/25/2008 [facility] ? Center. ? The tissue of both breasts is heterogeneously dense. This may lower the ? sensitivity of mammography. ? Current study was also evaluated with a Computer Aided Detection (CAD) ? system. ? There are benign scattered calcifications both breasts. ? No significant masses, calcifications, or other findings are seen in either ? breast. ? There has been no significant interval change. ? IMPRESSION: BENIGN ? There is no mammographic evidence of malignancy. ??A 1 year screening ? mammogram is recommended. ? A lay language report has been sent to the patient. ? Electronically Signed By ? Vitaliy Ramos M.D. ? abl/penrad:09/30/2010 09:12:17 ? Plant Safety Leader: Katerin JULIEN)(Kalie), [facility] - ? [place] ? letter sent: ACR 1/2 Screening ? Mammogram BI-RADS: 2 Benign ? end of result Eneida Daniels MD IM MAMMOGRAPHY ORDERABLES Final Result documented in this encounter Visit Diagnoses Not on filedocumented in this encounter Additional Health Concerns Assessment Noted Time A Depression follow-up plan has been documented for the patient 05/09/2009 8:13 AM EDT documented as of this encounter Care Teams Dna Sequencing Associate Relationship Specialty Start Date End Date Eneida Daniels MD [address] [place] [address] PCP - General 08/16/12 07/17/23 Vitaliy Minor MD PCP - Hospital (change to care team) 04/20/11 09/30/11 Eneida Daniels MD [address] [place] [address] PCP - Hospital (change to care team) 09/26/09 04/19/11 Angelica Chiu MD [address] [place] [address] [phone] PCP - Internal Med Diab Endo (change to care team) 02/20/11 05/28/16 Jass Saez MD [address] [place] [address] Dr Chatterjee [address] [place] [address] [phone] PCP - Internal Med Diab Endo (change to care team) 11/17/10 02/19/11 Provider, Unknown PCP - Hospital (change to care team) 10/01/11 10/04/11 Eneida Daniels MD [address] [place] [phone] PCP - Hospital (change to care team) 10/05/11 08/17/12 Provider, Unknown PCP - Hospital (change to care team) 08/18/12 05/20/16 Devante Correa MD [address] [place] [phone] PCP - General Family Medicine 07/18/23 07/19/23 Melissa Ruth MD [address] [place] [address] PCP - General Family Medicine 07/20/23 Tomas Gracia OD [address] [place] [address] Referring Physician Optometry 01/28/18 Tesha Garcia PAC [address] [place] [address] Physician Piano Instructor Physician Piano Instructor 11/15/19 Rodolfo Henry MD [address] [place] [address]69 Surgeon Otolaryngology 01/02/22 Angelica Chiu MD [facility] [address] [place] [address] [phone] Consulting Physician Endocrinology 10/03/24 Vane Angeles, JENNIFER [address] [place] [address] Physician Piano Instructor Urology 10/05/24 Boom Jauergui MD [address] [place] [address] Consulting Physician Urology 10/05/24 documented as of this encounter
--- OUTSIDE RECORDS SUMMARY | 2025-01-15 20:36 | XMS_ITS | Encounter Summary ---
[facility] Organization [facility] Address [address] [place] [address] Care Team Providers Care Cancer Program Coordinator Name Role Phone Eneida Daniels MD Primary Care Provider [phone] Vitaliy Minor MD Unavailable Unavailable Eneida Daniels MD Unavailable + Angelica Chiu MD Unavailable [phone] [facility] Unavailable [phone] Provider, Unknown Unavailable Unavailable Eneida Daniels MD Unavailable + Provider, Unknown Unavailable Unavailable Tomas Gracia OD Unavailable [phone] Tesha Garcia PAC Unavailable Unavailable Rodolfo Henry MD Unavailable [phone] Devante Correa MD Primary Care Provider +1-2 Melissa Ruth MD Primary Care Provider +1-2 Angelica Chiu MD Unavailable + [phone] Vane Angeles PAC Unavailable [phone] Boom Jauregui MD Unavailable [phone] Encounter Details Date Type Department Care Team (Late st Contact Info) Description 10/02/2008 Hospital Visit [facility] OUTPATIENT Eneida Daniels MD [address] [place] [address] Social History Tobacco Use Types Packs/Day Years [...] Type Priority Associated Diagnoses Date /Time MAMMO DIGITAL CB BILATERAL Imaging 10/02/2008 11:04 AM EST documented as of this encounter Procedures Procedure Name Priority Date/Time Associated Diagnosis Comments MAMMO DIGITAL CB BILATERAL 10/02/2008 11:04 AM EST documented in this encounter Visit Diagnoses Not on filedocumented in this encounter Care Teams Cancer Program Coordinator Relationship Specialty Start Date End Date Eneida Daniels MD [address] [place] [address] PCP - General 08/16/12 07/17/23 Vitaliy Minor MD PCP - Hospital (change to care team) 04/20/11 09/30/11 Eneida Daniels MD [address] [place] [address] 24[address] PCP - Hospital (change to care team) 09/26/09 04/19/11 Angelica Chiu MD [facility] [address] [place] [phone] PCP - Internal Med Diab Endo (change to care team) 02/20/11 05/28/16 Jass Saez MD [address] Chatterjee [address] [place] [phone] PCP - Internal Med Diab Endo (change to care team) 11/17/10 02/19/11 Provider, Unknown PCP - Hospital (change to care team) 10/01/11 10/04/11 Eneida Daniels MD [address] [place] [phone] PCP - Hospital (change to care team) 10/05/11 08/17/12 Provider, Unknown PCP - Hospital (change to care team) 08/18/12 05/20/16 Devante Correa MD [address] [place] [phone] PCP - General Family Medicine 07/18/23 07/19/23 Melissa Ruth MD [address] [place] [address] 15[address] PCP - General Family Medicine 07/20/23 Tomas Gracia OD [address] [place] [address] 349[address] Referring Physician Optometry 01/28/18 Tesha Garcia PAC [address] [place] [address] Physician Helicopter Dispatcher Physician Helicopter Dispatcher 11/15/19 Rodolfo Henry MD [address] [place] [address]679 Surgeon Otolaryngology 01/02/22 Angelica Chiu MD [address] [place] [address] [phone] Consulting Physician Endocrinology 10/03/24 Vane Angeles, JENNIFER [address] [place] [address] Physician Helicopter Dispatcher Urology 10/05/24 Boom Jauregui MD [address] [place] [address] Consulting Physician Urology 10/05/24 documented as of this encounter
--- OUTSIDE RECORDS SUMMARY | 2025-01-15 20:36 | XMS_ITS | Encounter Summary ---
[facility] Address [address] [place] [address] Care Team Providers Care Polishing Pad Mounter Name Role Phone Eneida Daniels MD Primary Care Provider + Vitaliy Minor MD Unavailable Unavailable Eneida Daniels MD Unavailable + Angelica Chiu MD Unavailable [phone] [facility] CorporationJass Tan MD Unavailable [phone] Provider, Unknown Unavailable Unavailable Eneida Daniels MD Unavailable + Provider, Unknown Unavailable Unavailable Tomas Gracia OD Unavailable [phone] Tesha Garcia PAC Unavailable Unavailable Rodolfo Henry MD Unavailable [phone] Devante Correa MD Primary Care Provider +1-2 Melissa Ruth MD Primary Care Provider +1-2 Angelica Chiu MD Unavailable + [phone] Vane Angeles PAC Unavailable [phone] Boom Jauregui MD Unavailable [phone] Encounter Details Date Type Department Care Team (Late st Contact Info) Description 02/06/2011 Hospital Visit [facility] OUTPATIENT Kaylan King MD [address] [facility][1] [address] [place] [address] Social History Tobacco Use Types Packs/Day Years [...] Procedure Name Priority Date/Time Associated Diagnosis Comments NM PARATHYROID 02/06/2011 10:52 AM EDT documented in this encounter Results * NM PARATHYROID SCAN (02/06/2011 10:52 AM EDT) Anatomical Region Laterality Modality Neck Nuclear Medicine 02/06/2011 10:5 2 AM EDT Narrative 02/06/2011 3:51 PM EDT ? DATE: ?02/06/2011 ?10:52 ? ORDERED EXAM: ?NM PARATHYROID IMAGING ? EXAM: ??NUCLEAR MEDICINE PARATHYROID SCAN 02/06/11 ? INDICATION: ??60-year-old female with hyperparathyroidism; evaluate for ? parathyroid adenoma. ? COMPARISON: ??Nuclear medicine parathyroid scan 05/11/08. ? RADIOPHARMACEUTICAL: ??21.9mCi Technetium 99m Sestamibi. ? TECHNIQUE: ??Following IV administration of radiopharmaceutical, planar ? imaging of the neck and upper chest was performed from anterior projection ? at 15 minutes and 2 hours. ??Additional SPECT imaging was obtained from the ? axial, sagittal and coronal planes with correlative low-dose helical axial ? CT imaging of the neck and upper chest. ? FINDINGS: ? Immediate scintigraphic imaging demonstrates diffuse, symmetric uptake of ? radiopharmaceutical from both thyroid glands with no focal abnormality. ? Delayed imaging demonstrates expected washout of radiotracer from thyroid ? gland with focal area of persistent radiopharmaceutical activity adjacent to ? the lower pole of the right thyroid gland. ??This finding is corroborated on ? fused CT imaging, seen best on axial image 27. ? IMPRESSION: ??Persistent radiopharmaceutical activity seen adjacent to the ? lower pole of the right thyroid gland concerning for underlying thyroid ? adenoma, similar to that seen on prior parathyroid study in 2008. ? Dr. Foley personally reviewed the images and interpretation and agrees ? with the final report. ? BEHZAD Grover / Nilson Foley MD ? THIS IS AN ELECTRONICALLY VERIFIED REPORT ? 02/06/2011 5:46 PM: ??BEHZAD Grover ? 02/07/2011 9:41 PM: ??Nilson Foley MD ? end of result us Kaylan King MD [facility] [place] ORDERABLES Salina chen Result documented in this encounter Visit Diagnoses Not on filedocumented in this encounter Additional Health Concerns Assessment Noted Time A Depression follow-up plan has been documented for the patient 05/09/2009 8:13 AM EDT documented as of this encounter Care Teams Polishing Pad Mounter Relationship Specialty Start Date End Date Eneida Daniels MD [address] [place] [address] PCP - General 08/16/12 07/17/23 Vitaliy Minor MD PCP - Hospital (change to care team) 04/20/11 09/30/11 Eneida Daniels MD [address] [place] [address] PCP - Hospital (change to care team) 09/26/09 04/19/11 Angelica Chiu MD [address] [place] [phone] PCP - Internal Med Diab Endo (change to care team) 02/20/11 05/28/16 Jass Saez MD [address] [place] [phone] PCP - Internal Med Diab Endo (change to care team) 11/17/10 02/19/11 Provider, Unknown PCP - Hospital (change to care team) 10/01/11 10/04/11 Eneida Daniels MD [address] [place] [address] 713[address] PCP - Hospital (change to care team) 10/05/11 08/17/12 Provider, Unknown PCP - Hospital (change to care team) 08/18/12 05/20/16 Devante Correa MD [address] [place] [phone] PCP - General Family Medicine 07/18/23 07/19/23 Melissa Ruth MD [address] [place] [address] PCP - General Family Medicine 07/20/23 Tomas Gracia OD [address] [place] [address] Referring Physician Optometry 01/28/18 Tesha Garcia, PAC [address] [place] [address] Physician Ventilating Expert Physician Ventilating Expert 11/15/19 Rodolfo Henry MD [address] [place] [address] Surgeon Otolaryngology 01/02/22 Angelica Chiu MD [facility] [address] [place] [address] [phone] Consulting Physician Endocrinology 10/03/24 Vane Angeles, PAC [address] [place] [address] Physician Ventilating Expert Urology 10/05/24 Boom Jauregui MD [address] [place] [phone] Consulting Physician Urology 10/05/24 documented as of this encounter
--- OUTSIDE RECORDS SUMMARY | 2025-01-15 20:36 | XMS_ITS | Encounter Summary ---
[facility] [address] [place] [address] Care Team Providers Care Kiln Drawer Name Role Phone Eneida Daniels MD Primary Care Provider + Vitaliy Minor MD Unavailable Unavailable Eneida Daniels MD Unavailable + Angelica Chiu MD Unavailable [phone] [facility] MD Unavailable [phone] Provider, Unknown Unavailable Unavailable Eneida Daniels MD Unavailable + Provider, Unknown Unavailable Unavailable Tomas Gracia OD Unavailable Tesha Garcia PAC Unavailable Unavailable Rodolfo Henry MD Unavailable [phone] Devante Correa MD Primary Care Provider +1-2 Melissa Ruth MD Primary Care Provider +1-2 Angelica Chiu MD Unavailable [phone] Vane Angeles PAC Unavailable [phone] Boom Jauregui MD Unavailable Encounter Details Date Type Department Care Team (Late st Contact Info) Description 01/28/2011 Hospital Visit [facility] OUTPATIENT Kaylan King MD [address] [facility] [address] [place] [address] Social History Tobacco Use Types Packs/Day Years [...] Procedure Name Priority Date/Time Associated Diagnosis Comments CBC + DIFFERENTIAL Routine 02/03/2011 9: 30 AM EDT documented in this encounter Results * CBC AND DIFFERENTIAL (02/03/2011 9:30 AM EDT) White Blood Count 5.9 4.2 - 10.2 Thou/uL [facility] Erythrocytes 4.89 3.80 - 5.10 Mil/uL [facility] Hemoglobin 13.7 11.8 - 15.8 g/dL [facility] Hematocrit 42.3 35.0 - 47.0 % [facility] Mean Corpuscular Volume 86.5 80.0 - 100.0 fL [facility] Mean Corpuscular Hemoglobin 28.0 26.0 - 34.0 pg [facility] Mean Corpuscular Hemoglobin Conc 32.4 32.0 - 36.0 g/dL [facility] Platelet Count 243 140 - 440 Thou/uL [facility] Erythrocyte Distribution Width SD 43.6 37.0 - 48.0 fL [facility] Erythrocyte Distribution Width CV 14.0 12.0 - 14.6 % [facility] Polymorphonuclear Percent 63 47 - 80 % [facility] Lymphocytes Percent 29 14 - 46 % [facility] Monocytes Percent 7 5 - 12 % [facility] Eosinophils Percent 2 0 - 5 % [facility] Basophils Percent 0 0 - 2 % [facility] Neutrophils Absolute 3.72 2.40 - 7.60 Thou/uL [facility] Lymphocytes Absolute 1.70 1.00 - 3.30 Thou/uL [facility] Monocytes Absolute 0.40 0.30 - 0.90 Thou/uL [facility] Eosinophils Absolute 0.09 0.00 - 0.40 Thou/uL [facility] Basophils Absolute 0.02 0.00 - 0.12 Thou/uL [facility] 02/03/2011 9:30 AM EDT 02/03/2011 10:28 AM EDT Kaylan King MD HEMATOLOGY ORDERABLES Final Result [facility] [address] [place] [address] documented in this encounter Visit Diagnoses Not on filedocumented in this encounter Additional Health Concerns Assessment Noted Time A Depression follow-up plan has been documented for the patient 05/09/2009 8:13 AM EDT documented as of this encounter Care Teams Kiln Drawer Relationship Specialty Start Date End Date Eneida Daniels MD [address] [place] [address] PCP - General 08/16/12 07/17/23 Vitaliy Minor MD PCP - Hospital (change to care team) 04/20/11 09/30/11 Eneida Daniels MD [address] [place] [phone] PCP - Hospital (change to care team) 09/26/09 04/19/11 Angelica Chiu MD [address] [place] [phone] PCP - Internal Med Diab Endo (change to care team) 02/20/11 05/28/16 Jass Saez MD [address] [place] [address] [place] [phone] PCP - Internal Med Diab Endo (change to care team) 11/17/10 02/19/11 Provider, Unknown PCP - Hospital (change to care team) 10/01/11 10/04/11 Eneida Daniels MD [address] [place] [address] PCP - Hospital (change to care team) 10/05/11 08/17/12 Provider, Unknown PCP - Hospital (change to care team) 08/18/12 05/20/16 Devante Correa MD [address] [place] [phone] PCP - General Family Medicine 07/18/23 07/19/23 Melissa Ruth MD [address] [place] [phone] PCP - General Family Medicine 07/20/23 Tomas Gracia OD [address] [place] [phone] Referring Physician Optometry 01/28/18 Tesha Garcia PAC [address] [place] [phone] Physician Gauge Checker Physician Gauge Checker 11/15/19 Rodolfo Henry MD [address] [place] [phone] Surgeon Otolaryngology 01/02/22 Angelica Chiu MD [address] [place] [phone] Consulting Physician Endocrinology 10/03/24 Vane Angeles, JENNIFER [address] [place] [phone] Physician Gauge Checker Urology 10/05/24 Boom Jauregui MD [address] [place] [phone] Consulting Physician Urology 10/05/24 documented as of this encounter
--- OUTSIDE RECORDS SUMMARY | 2025-01-15 20:36 | XMS_ITS | Clinical Summary ---
Author Organization [facility] Address [address] [place] [address] Care Team Providers Care Manager Of Sustainability Name Role Phone Tomas Gracia OD Unavailable [phone] Rodolfo Henry MD Unavailable Melissa Ruth MD Primary Care Provider [phone] Angelica Chiu MD Unavailable [phone] Vane Angeles PAC Unavailable [phone] Boom Jauregui MD Unavailable [phone] Allergies Active Allergy Reactions Criticality Noted Date Comments Alendronate Sodium Other (See Comments) 005 Causes GI symptoms-acid reflux Doxazosin Mesylate Other (See Comments) 005 Causes syncope Penicillins 12/19/2010 Sulfa Antibiotics 12/23/2010 Medications * This document contains information received from the source organization and may not represent a complete record from that organization. timolol 0.5 % Solution 1 Drop 2 times daily 1 Bottle 3 06/27/20 18 Active lisinopril 20 MG TabIndications:Ess[facility]ia l hypertension, benign TAKE ONE TABLET BY MOUTH ONE TIME DAILY 90 Tablet 3 05/29/20 24 Active estradiol (Vagifem) 10 MCG Tab Inset one tablet vaginally twice weekly 24 Tablet 3 06/16/20 24 Active sertraline (Zoloft) 50 MG TabIndications:Anxiety and depression Take 1 Tablet (50 mg total) by mouth daily. 90 Tablet 2 11/05/20 24 Active atorvastatin (Lipitor) 40 MG TabIndications:Pure hypercholesterolemia Take 1 Tablet (40 mg total) by mouth daily. 90 Tablet 3 08/22/20 24 Active fluticasone propionate (Flonase) 50 mcg/act Suspension 1 Fulda by Nasal route daily. 16 gm 1 12/27/19 25 Active Hospital, Clinic, or Other Facility Administered Medication Ordered Dose Route Frequency Start Date End Date Status lidocaine-EPINEPHrine 2 %-1:[id number] injection 1 mL 1 mL ID Once 12/04/2020 Active buffered lidocaine 1% w/epinephrine injection 1 mL ID Once 01/22/2021 A ctive lidocaine-EPINEPHrine 1 %-1:[id number] injection 5 mgIndications:Neoplasm of uncertain behavior of skin 5 mg ID Once 07/23/2021 Active Active Problems Problem Noted Date Diagnosed Date Abnormal CT scan, kidney 10/03/2024 Assessment & Plan (10/03/2024 5:09 PM EST): CT 09/25/2024 with concern for left-sided pyelonephritis. Interestingly, clinically improved on Macrobid which would not be expected to treat pyelonephritis. The urine collected on 09/22/2024 was not sent for culture. Plan as follows: -Will repeat urine culture today -Treat for potential pyelonephritis. Will use levofloxacin given her sulfa and beta lactam allergy -Has follow up scheduled already with urology -Will repeat CT in 4 weeks to ensure resolution of abnormality. Discussed if CT not improved will need to consider renal cancer. Also will follow up on thickened bowel. Assessment & Plan (10/03/2024 5:08 PM EST): CT 09/25/2024 with concern for left-sided pyelonephritis. Interestingly, clinically improved on Macrobid which would not be expected to treat pyelonephritis. The urine collected on 09/22/2024 was not sent for culture. Plan as follows: -Will repeat urine culture today -Treat for potential pyelonephritis. Will use levofloxacin given her sulfa and beta lactam allergy -Has follow up scheduled already with urology -Will repeat CT in 4 weeks to ensure resolution of abnormality. Discussed if CT not improved will need to consider renal cancer. Also will follow up on thickened bowel. Gallstones 09/25/2024 Elevated parathyroid hormone 06/15/2024 Assessment & Plan (06/15/2024 9:50 AM EDT): Pt reports hx partial Parathyroid removal Last PTH ( 2022 ) was elevated Will recheck today with CMP and TSh Lactose intolerance 06/15/2024 Assessment & Plan (06/15/2024 9:51 AM EDT): Recent increase gi gassiness. Cramping Feels this is related to dairy Revieed use of lactaid, probiotics Also given FODmap food list Hx of skin cancer, basal cell 06/03/2023 Chronic kidney disease, stage 3a 02/18/2023 Overview (05/21/2023): consider since eGFR between 44-59 on 10/24/20 and 10/18/2021 and 09/18/2019 [id number] Assessment & Plan (06/15/2024 9:47 AM EDT): CMP, urine micro ordered today Cont current meds Follow up pending labs Assessment & Plan (05/21/2023 4:34 PM EDT): Recurrent episodes of GFR < 60, asymptomatic. Risk factors include HTN, nephrolithiasis. Not on any nephrotoxic medications. Discussed work-up, agrees to labs. Follow-up as indicated by results. Urinary incontinence 03/20/2022 Assessment & Plan (07/18/2024 8:56 AM EDT): Ongoing urinary urgency, occ incontinence Elects trial of pelvid PT Assessment & Plan (05/21/2023 9:56 AM EDT): Reports struggles with remembering vaginal estrogen, notes improvement when using regularly Assessment & Plan (03/21/2022 12:54 AM EDT): Suspect stress incontinence occurring with physical activity as well as component of atrophic vaginitis contributing. Plan for resumption of vaginal estrogen. If this does not result in improvement would recommend Uro-Centrifuge Operator referral for further diagnostics prior to thinking about trial of any kind of medication. Low-tension glaucoma of both eyes, mild stage Overview (01/28/2018): Followed by Tomas Gracia [facility] Actinic keratosis 11/27/2016 Assessment & Plan (07/18/2024 8:56 AM EDT): Has upcoming appt with Derm clinic Assessment & Plan (06/15/2024 9:49 AM EDT): Following with dem clinic Assessment & Plan (11/27/2016 2:12 PM EST): Multiple Agrees to referral to derm clinic Atrophic vaginitis 08/12/2011 Assessment & Plan (07/18/2024 8:56 AM EDT): Cont premarin cream Assessment & Plan (06/15/2024 9:48 AM EDT): Has been using estriol twice weekly as well as replens Cont driness but also concern re cost of compounded estriol Will do trial of premarin cream twice weekly Assessment & Plan (05/21/2023 4:39 PM EDT): Continue vaginal estriol, once weekly, -notable improvement in urinary sx with this regimen Assessment & Plan (09/21/2022 3:20 PM EST): Using vaginal estriol 1 x per week with good effect Assessment & Plan (10/14/2020 8:13 PM EST): Continues well controlled on weekly estrogen cream, Replens prn. Assessment & Plan (09/18/2019 5:58 PM EST): Controlled with estriol intermittently (once per week) and Replens prn Continue same Assessment & Plan (11/26/2017 8:41 AM EST): Successful tx with alternating Replens and vaginal estradiol cream. Assessment & Plan (05/31/2017 2:23 PM EDT): Improved with increased frequency and now backed down. Still with incontinence issues. Currently 2 x per week. Recommend increase Replens to see if this helps back down on frequency of Estriol. Check with insurance re: covered alternatives. Assessment & Plan (11/27/2016 2:12 PM EST): With dryness and urinary incontinence (?related to atrophic status). Trial increased frequency of vaginal estriol cream (q 3 days). If continues to have incontinence with this change, would recommend referral to urogyn Assessment & Plan (11/04/2015 10:42 AM EST): Exam with ?lichen sclerosis on hymenal ring, less consistent with atrophic vaginitis. Jennifer prefers trial of adding more vaginal moisture with otc Replens. If sx persist, will refer to DIRECTOR for bx and recommendations (suspect would respond to steroid). Assessment & Plan (09/08/2013 4:46 PM EST): Exacerbation on once weekly dose--will increase to twice weekly, RX for compounded formula faxed to [facility]. Follow up as needed if symptoms worsen or don't improve as expected. Assessment & Plan (08/17/2012 11:23 AM EDT): Improved with vaginal estrogen, originally prescribed by Tesha Hapmton. Reviewed using lowest effective dose--decreasing to 1-2 x per week as able. Consider uterine monitoring for hyperplasia if in use for senior care Assessment & Plan (08/12/2011 12:15 PM EDT): Improved on low dose estrogen cream, but still present Advised increase frequency of use--nightly x 1 week, th en taper, observe for sx recurrence. Should be able to maintain at twice weekly doses. Obesity (BMI 30.0-34.9) 04/03/2009 Assessment & Plan (09/24/2022 9:18 AM EST): Weight is stable, continuing attention to healthy eating and exercise. Discussed risk for DM, and eligibility for-NDPP referral) declines, would not make difference--doing yoga, walks every other day -- [facility] Assessment & Plan (10/14/2020 8:11 PM EST): Continue attention to exercise, limiting carbs Assessment & Plan (09/18/2019 6:02 PM EST): Congrats on increased attention to exercise--continue water aerobics 3 x per week. Assessment & Plan (03/20/2019 3:30 PM EDT): Weight stable over last year Reinforced healthy diet and exercise habits Has increased walking over the last few months and [facility] Discussed referrals to [facility] and nutrition. Not interested in nutrition referral at this time but will follow up with AT to develop a home exercise program Assessment & Plan (08/19/2018 9:59 AM EDT): Discussed relationship of weight and joint issues as well as HTN Agrees to engage [facility] (check into getting medicare coverage for this). Consider nutrition and/or AT referral if no change at follow-up Assessment & Plan (11/26/2017 8:40 AM EST): Unchanged. Bulk of today's visit spent on nutrition and exercise counseling. Jennifer is motivated to get a jump start on weight loss; we discussed importance of sustainable changes. -given nutrition diary with reflective ( what worked/didn't ) comments . May trial protein shake for lunch, paying attention to impact on other food intake and/or rebound eating/feeling deprived. -will check out [facility] for walking and plan to take the stairs more at home (4 flights up) Assessment & Plan (07/15/2014 11:19 AM EDT): Continues stable (no weight gain!) with anticipated improvement when she adds more exercise post intermediate. No change in goals. F/u for PE in October. Assessment & Plan (02/26/2014 11:15 PM EDT): No weight loss, but no significant gain either. Reviewed exercise goals: goal is now for 10,000 steps 3-4 days/week. Considering adding 5 minutes on treadmill when she first gets to work to reach this goal. Discussed portion control, mindful eating, frequent protein-based snacks (shrimp, lean turkey) as means of weight loss. F/u in July per Jennifer's request. Assessment & Plan (12/15/2013 3:35 PM EST): Unchanged. Recommits to exercise 4 days per week at work-gym--plans to do this on her lunch hour. Also hopes to start walking to work again once ice clears. 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 Repeat Dexa 12/2015: stable 2017 and 2020--overall stable, meets criteria for osteoporosis based on T score of -2.6 (down from -2.4 in 2018) at [facility] 2022: T score -3.0 left femoral neck (not previously done in this location). See A/P for plan (no treatment) Assessment & Plan (07/18/2024 8:55 AM EDT): DEXA showed spine osteoporosis Repeat due next year Assessment & Plan (05/21/2023 6:45 PM EDT): Compression fx of L2 noted incidentally on CT abd/pelvis 10/18/2021. Not currently symptomatic Continue weight-bearing exercise, assuring adequate calcium/D Assessment & Plan (02/05/2023 11:50 AM EDT): Reviewed Dexa scan from earlier this month. Lowest T score = -3.0, femoral neck. Not previously tested in this location, other areas either without significant change or improved (L/S spine). Shared decision-making using www.osteoporosisdecisionaid@[facility].org: Risk of hip fracture goes from 8% without treatment to 6% with bisphosphonate. Jennifer is doing well with weight-bearing exercise, supplementing Vitamin D, paying attention to dietary calcium. After discussion of above, opts not to treat. Will plan to discontinue further dexa tests Assessment & Plan (09/24/2022 9:20 AM EST): History of osteoporosis related to hyperparathyroidism. Status post bisphosphonates many years ago. Stable DEXA scans x2. plan for repeat DEXA scan--if stable discontinue monitoring. Continue attention to adequate calcium, vitamin D, and weightbearing exercise. Assessment & Plan (12/19/2021 4:25 PM EST): Stable per Dexa in 2018, s/p actonel Rx, would re-start if significant changes Plan to recheck bone density scan in 2022 Continue walking, yoga as weight-bearing exercise, as well as supplemental D3, attention to dietary calcium. Assessment & Plan (06/06/2021 2:06 PM EDT): Reviewed Dexa from December 2020--risk score on [place] [facility] site indicates 9% decreased to 5% with bisphosphonate. Opts to defer medication, optimize calcium/D/weight bearing exercise. See handout in [facility] Recheck Dexa in 2-3 years. Assessment & Plan (10/14/2020 8:07 PM EST): Initially dx'd secondary to hyperparathyroidism. Last dexa 2017 showed marked improvement. Agrees to schedule repeat exam in 3-4 months (wait post-peak of COVID). Continue calcium/D supplementation and weight bearing exercise (recommended adding hand weights to routine) Assessment & Plan (03/20/2019 3:38 PM EDT): Repeat Dexa Aug 2018 showed mild improvement from previous scan Taking calcium and vitamin D supplementation currently (has taken inconsistently over the past few years) Encouraged to continue to take calcium and vit D Assessment & Plan (08/19/2018 10:00 AM EDT): Originally in context of hyperparathyroidism (resolved post surgery)--due for repeat dexa, ordered. Not currently on additional Calcium/D or bisphosphonate. Assessment & Plan (05/31/2017 2:32 PM EDT): Plan for repeat dexa 203 years after last one (12/2015), with endocrine evaluation to assess and make recommendations about interbention for someonw who has been on Actonel x 2-3 yrs previously. Assessment & Plan (11/27/2016 2:11 PM EST): Most recent dexa is stable off bisphosphonates. Continue vitamin D, attention to dietary calcium and weight bearing exercise. Assessment & Plan (05/01/2016 9:17 AM EDT): Recommend increase Vitamin D to 2000 IU daily, continue calcium supplementation and weight bearing exercise Assessment & Plan (11/04/2015 10:43 AM EST): Due for repeat bone density Reviewed vitamin D/calcium supplementation and importance of weight bearing exercise Consider endo referral if indicated by bone density results (pt has been on Actonel in the past). Assessment & Plan (01/04/2015 10:29 AM EDT): Plan repeat in 2016, consider endo consult. Assessment & Plan (09/08/2013 4:45 PM EST): Slightly worse on Dexa done July 2013, but seemed to slow in decline, ?related to parathyroidectomy. Will continue bisphosphonate holiday for now, Calcium and Vitamin D supplementation (check levels) and repeat bone density in 2 yrs. Offered re-consultation with Dr. Gonzalez, prefers to hold off for now. Assessment & Plan (08/17/2012 11:25 AM EDT): Will repeat bone density as last was 2 yrs ago and Jennifer has had parathyroidectomy in the interim. If stable, continue Vitamin D and Calcium, weight bearing exercise. Anxiety and depression 06/13/2007 Overview (08/12/2011): Mostly anxious features. Assessment & Plan (05/21/2023 4:37 PM EDT): Stable on low dose SSRI, daily walks/yoga, community connections and supportive friends/family. No side effects to meds, had recurrence of sx with attempted wean in past. Elects to continue sertraline Assessment & Plan (12/19/2021 4:20 PM EST): Continues stable on Sertraline, anxiety that was the reason she started it is manageable. Able to fall back to sleep if awakens. Prefers no change for now given world events, plan to reconsider in 6-12 months. Assessment & Plan (06/06/2021 2:07 PM EDT): Stable on low dose sertraline, reviewed options for weaning--plan to continue current Rx, reconsider wean in future (after pandemic related stressors barbie). Assessment & Plan (10/14/2020 8:17 PM EST): Stable without medication side effects on low dose sertraline x years. Declines wean, side effects discussed. Assessment & Plan (09/18/2019 2:20 PM EST): Stable, reluctant to wean meds, no side effects Continue low dose sertraline. Assessment & Plan (11/26/2017 8:38 AM EST): Feels well on current dose sertraline, declines wean. Assessment & Plan (05/01/2016 9:18 AM EDT): Stable on low dose sertraline, exercise Continue same Assessment & Plan (11/04/2015 11:02 AM EST): Continues stable on low dose sertraline. Discussed unknown effects of skilled nursing SSRI--prefers to continue same. Assessment & Plan (08/17/2012 11:23 AM EDT): Well controlled on sertraline, without side effects. Continue same. Assessment & Plan (08/12/2011 12:14 PM EDT): Stable on low dose ssri Continue same Encourage exercise Hyperlipidemia 07/07/2005 Assessment & Plan (05/21/2023 4:37 PM EDT): Adherent to statin LFTs to monitor ordered. Assessment & Plan (12/19/2021 4:18 PM EST): Adherent to high intensity statin (atrovastatin, 40 mg) without side effect. Plan for monitoring labs. Assessment & Plan (10/14/2020 8:10 PM EST): Most recent labs show improvement on same dose of statin, ?related to lifestyle modification. No side effects noted, will add liver functions to planned labs. Continue atorvastatin 40 mg daily Assessment & Plan (09/18/2019 5:59 PM EST): Adherent to atrovastatin without side effects. Recheck LFTs Continue Atorvastatin 40 mg daily Assessment & Plan (08/19/2018 10:02 AM EDT): Due for monitoring labs--ordered today Assessment & Plan (11/26/2017 8:40 AM EST): Adherent to statin without side effects Continue same Assessment & Plan (11/27/2016 2:08 PM EST): Tolerating low dose simvastatin. Re-calculation of 10 yr risk=10.1%, therefore would benefit from higher intensity statin. Agrees to switch to atorvastatin, 40 mg, side effects discussed. Recheck in 6 months. Assessment & Plan (11/04/2015 11:00 AM EST): Continues with excellent lipid panel on low dose atorvastatin, no side effects. Continue same. Assessment & Plan (09/08/2013 4:50 PM EST): Excellent results on low dose statin, continue same. Assessment & Plan (08/17/2012 11:23 AM EDT): Excellent results on low dose statin. Continue same. Assessment & Plan (08/12/2011 12:12 PM EDT): Tolerating medication Well controlled lipids Encourage exercise, continue meds. Hearing loss 07/07/2005 Overview (07/17/2015): RIGHT EAR- uses aid, annual checks. Decrease in 2009 was f/u with MRI which ruled out acoustic neuroma ICD10 Update Assessment & Plan (05/21/2023 4:35 PM EDT): Stable, annual audiology eval for hearing aid adjustment Assessment & Plan (11/27/2016 2:09 PM EST): Subjectively worse on side without aid (left). Refer for audiology assessment Hypertension 07/07/2005 Overview (08/12/2011): Assessment & Plan (06/15/2024 9:49 AM EDT): Generally well controlled on lisinoprol Labs today Assessment & Plan (05/21/2023 9:55 AM EDT): Well controlled on lisinopril Due for monitoring labs Assessment & Plan (09/24/2022 9:21 AM EST): Well-controlled on 20 mg lisinopril nightly,, no side effects, labs up-to-date. Continue current management Assessment & Plan (12/19/2021 4:23 PM EST): Home reading of 138/92 today is above target. Plan to recheck at [facility] for PE portion of physical within the next 3 months Assessment & Plan (06/06/2021 2:04 PM EDT): Well controlled on current regimen (single agent, lisinopril 20 mg), without side effects. Taking medication at night as recommended. BMP up to date Continue current rx/lifestyle modification (DASH) follow-up 6 months, sooner prn. Assessment & Plan (10/14/2020 8:09 PM EST): Well controlled per second home reading (initial was 140/80). Adherent to lisinopril without side effects. Advised to switch time of medication to evening. Due for lab monitoring--plans to schedule at [facility] Assessment & Plan (09/18/2019 6:00 PM EST): No sx of hypotension, adherent to lisinopril, no side effects Well controlled BMP today Continue lisinopril 20 mg daily Assessment & Plan (03/21/2019 9:14 PM EDT): Stable on lisinopril 20 mg daily Continue current rx Plan for labs prior to AWV in Fall. Assessment & Plan (08/19/2018 8:40 AM EDT): Single agent (lisinopril), occ dry cough, prefers to continue same Labs pending. Assessment & Plan (11/26/2017 8:37 AM EST): Controlled on lisinopril 20 mg, no side effects to Rx, utd on lab monitoring. Continue current rx Assessment & Plan (11/27/2016 2:10 PM EST): Well controlled on lisinopril, stable labs Continue same Assessment & Plan (05/01/2016 9:16 AM EDT): Well controlled on current RX, EKG done today due to tachycardia without evidence of LVH. Continue lisinopril 20 mg daily and K+ replacement Consider cardiology eval with echo if tachycardia symptomatic. Assessment & Plan (11/04/2015 10:58 AM EST): Well controlled on current 20 mg lisinopril, stable labs Continue same Assessment & Plan (07/15/2014 11:17 AM EDT): Improved on increased dose of lisinopril with stable labs Continue current medication and efforts and weight loss. Reviewed sx of hypotension. Assessment & Plan (02/26/2014 11:13 PM EDT): Improved control on increased dose lisinopril, stable BMP on recheck after dose increase. Continue current meds, DASH nutrition Reviewed role of weight/exercise on HTN management. Assessment & Plan (12/15/2013 8:58 AM EST): Not well controlled on current dose of lisinopril. Increase to 20 mg daily. Recheck BP and BMP in 2 weeks. F/u with me in 3 months Assessment & Plan (09/08/2013 4:48 PM EST): Elevated again today, room for lifestyle modification prior to increasing lisinopril dose. Jennifer agrees to attempt moderate weight loss, increase walking frequency. Recheck 6 months, sooner prn. Assessment & Plan (08/17/2012 11:24 AM EDT): Borderline high today, but well controlled per outpatient readings. Stable BMP, continue lisinopril. Assessment & Plan (08/12/2011 12:13 PM EDT): Well controlled on Doc only (10mg) Check labs Continue meds Resolved Problems Problem Noted Date Diagnosed Date Resolved Date Urinary frequency 09/06/2024 09/06/2024 Infected sebaceous cyst 11/18/202309/17 Assessment & Plan (01/04/2024 11:00 AM EDT): Had a cystic lesion on her left upper thigh that was treated with 2 courses of antibiotics since October. It has been improving since then. On my exam it has completely resolved with no evidence of infection or persisting capsule. Reassurance provided and return precautions reviewed. Assessment & Plan (11/18/2023 9:20 AM EST): Here for follow up of persistent cystic lesion L upper thigh Tx previously with doxycycline x 5 days - notes improvement but continued redness, mild tenderness - L upper thigh with are mild erythema, 1 cm indurated, mildly tender sebaceous cyst Doxycycline 100 mg BID x 10 days Warm compresses TID Follow up if not improving over next 2-3 weeks Sooner if worsening She is comfortable with plan Chronic left hip pain 02/05/20232022 Assessment & Plan (05/21/2023 9:55 AM EDT): Resolved with HEP Assessment & Plan (02/05/2023 11:56 AM EDT): Present x years, last xray (benign) > 10 yrs ago, ?if slow onset of increased sx represents arthritis. No trauma, no acute pain issues Discussed monitoring sx, re-starting HEP (in hip file at home from prior PT) Further work-up/xray if persists at follow-up visit for AWV in ~ 3 months, call sooner if worse. Dystrophic nail 03/20/2022 09/21/2022 Assessment & Plan (03/20/2022 10:32 PM EDT): 4th digit, Left toe. Discussed options for further assessment with fungal culture and treatment if positive versus symptomatic care. Patient opts for no intervention at this time. BPPV (benign paroxysmal posi tional vertigo), unspecified laterality 03/28/2021 12/19/2021 Assessment & Plan (09/24/2022 9:25 AM EST): Continues to have occasional positional dizziness symptoms, most notable with rolling over or sitting up, resolves quickly. Discussed likelihood that this represents autonomic age-related orthostatic hypotension. Continue current situational awareness, with attention to resolution of symptoms before continuing to change position. If symptoms persist could retry Nathan maneuvers that helped with BPPV in the past Assessment & Plan (12/19/2021 4:26 PM EST): Resolved after Eppley maneuvers, no recurrence. Assessment & Plan (06/06/2021 2:02 PM EDT): Occasional sx recurrence, spontaneous resolution. No red flags. Continue attention to slow position changes and follow-up prn exacerbation/increased frequency of sx Assessment & Plan (03/28/2021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
--- OUTSIDE RECORDS SUMMARY | 2025-01-15 20:36 | XMS_ITS | Encounter Summary ---
[facility] [address] [place] [address] Care Team Providers Care Supervisor Delivery Department Name Role Phone Eneida Daniels MD Primary Care Provider + Vitaliy Minor MD Unavailable Unavailable Eneida Daniels MD Unavailable + Angelica Chiu MD Unavailable [phone] [facility] Unavailable [phone] Provider, Unknown Unavailable Unavailable Eneida Daniels MD Unavailable + Provider, Unknown Unavailable Unavailable Tomas Gracia OD Unavailable [phone] Tesha Garcia PAC Unavailable Unavailable Rodolfo Henry MD Unavailable [phone] Devante Correa MD Primary Care Provider +1-2 Melissa Ruth MD Primary Care Provider +1-2 Angelica Chiu MD Unavailable [phone] Vane Angeles PAC Unavailable [phone] Boom Jauregui MD Unavailable [phone] Encounter Details Date Type Department Care Team (Late st Contact Info) Description 05/14/2008 Hospital Visit [facility] OUT[facility] Kaylan King MD [address] [facility] [address] [place] [address] Social History Tobacco Use Types Packs/Day Years [...] on filedocumented in this encounter Care Teams Supervisor Delivery Department Relationship Specialty Start Date End Date Eneida Daniels MD [address] [place] [phone] PCP - General 08/16/12 07/17/23 Vitaliy Minor MD PCP - Hospital (change to care team) 04/20/11 09/30/11 Eneida Daniels MD [address] [place] [phone] PCP - Hospital (change to care team) 09/26/09 04/19/11 Angelica Chiu MD [address] [place] [phone] PCP - Internal Med Diab Endo (change to care team) 02/20/11 05/28/16 Jass Saez MD [address] [place] [address] Dr Chatterjee [address] [place] [phone] PCP - Internal Med Diab Endo (change to care team) 11/17/10 02/19/11 Provider, Unknown PCP - Hospital (change to care team) 10/01/11 10/04/11 Eneida Daniels MD [address] [place] [phone] PCP - Hospital (change to care team) 10/05/11 08/17/12 Provider, Unknown PCP - Hospital (change to care team) 08/18/12 05/20/16 Devante Correa MD [address] [place] [phone] PCP - General Family Medicine 07/18/23 07/19/23 Melissa Ruth MD [address] [place] [phone] PCP - General Family Medicine 07/20/23 Tomas Gracia OD [address] [place] [address] Referring Physician Optometry 01/28/18 Tesha Garcia, PAC [address] [place] [address] Physician Engraving Plate Maker Physician Engraving Plate Maker 11/15/19 Rodolfo Henry MD [address] [place] [address] Surgeon Otolaryngology 01/02/22 Angelica Chiu MD [facility] [address] [place] [phone] Consulting Physician Endocrinology 10/03/24 Vane Angeles, PAC [address] [place] [address] Physician Engraving Plate Maker Urology 10/05/24 Boom Jauregui MD [address] [place] [address] Consulting Physician Urology 10/05/24 documented as of this encounter
--- OUTSIDE RECORDS SUMMARY | 2025-01-15 20:36 | XMS_ITS | Encounter Summary ---
Author Organization [facility] Address [address] [place] [address] Care Team Providers Care Signal Maintainer Name Role Phone Eneida Daniels MD Primary Care Provider [phone] Angelica Chiu MD Unavailable [phone] Eneida Daniels MD Unavailable + [phone] Provider, Unknown Unavailable Unavailable Tomas Gracia OD Unavailable [phone] Tesha Garcia PAC Unavailable Unavailable Rodolfo Henry MD Unavailable [phone] Devante Correa MD Primary Care Provider [phone] Melissa Ruth MD Primary Care Provider +[phone]- Angelica Chiu MD Unavailable [phone] Vane Angeles PAC Unavailable [phone] Boom Jauregui MD Unavailable [phone] Encounter Details Date Type Department Care Team (Late st Contact Info) Description 10/05/2011 Hospital Visit [facility] OUTPATIENT Eneida Daniels MD [address] [place] [address] Social History Tobacco Use Types Packs/Day Years [...] 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 Not on fi le documented as of this encounter Plan of Treatment Not on file documented as of this encounter Visit Diagnoses Not on filedocumented in this encounter Additional Health Concerns Assessment Noted Time A Depression follow-up plan has been documented for the patient 05/09/2009 8:13 AM EDT documented as of this encounter Care Teams Signal Maintainer Relationship Specialty Start Date End Date Eneida Daniels MD [address] [place] [address] PCP - General 08/16/12 07/17/23 Angelica Chiu MD [facility] [address] [place] [phone] PCP - Internal Med Diab Endo (change to care team) 02/20/11 05/28/16 Eneida Daniels MD [address] [place] [address]57 PCP - Hospital (change to care team) 10/05/11 08/17/12 Provider, Unknown PCP - Hospital (change to care team) 08/18/12 05/20/16 Devante Correa MD [address] [place] [address] PCP - General Family Medicine 07/18/23 07/19/23 Melissa Ruth MD [address] [place] [address] PCP - General Family Medicine 07/20/23 Tomas Gracia OD [address] [place] [address] Referring Physician Optometry 01/28/18 Tesha Garcia PAC [address] [place] [address] Physician Bmw Service Technician Physician Bmw Service Technician 11/15/19 Rodolfo Henry MD [address] [place] [address] Surgeon Otolaryngology 01/02/22 Angelica Chiu MD [facility] [address] [place] [address] [phone] Consulting Physician Endocrinology 10/03/24 Vane Angeles, [facility] [address] [place] [address] Physician Bmw Service Technician Urology 10/05/24 Boom Jauregui MD [address] [place] [address] Consulting Physician Urology 10/05/24 documented as of this encounter
--- OUTSIDE RECORDS SUMMARY | 2025-01-15 20:36 | XMS_ITS | Encounter Summary ---
Author Organization [facility] Address [address] [id number] Care Team Providers Care Corporate Tutor Name Role Phone Eneida Daniels MD Primary Care Provider [phone] Tomas Gracia OD Unavailable Tesha Garcia PAC Unavailable Unavailable Rodolfo Henry MD Unavailable [phone] Devante Correa MD Primary Care Provider [phone] Melissa Ruth MD Primary Care Provider [phone] Angelica Chiu MD Unavailable [phone] Vane Angeles PAC Unavailable [phone] Boom Jauregui MD Unavailable [phone] Encounter Details Date Type Department Care Team (Late st Contact Info) Description 11/13/2020 Immunization [facility] Scanprovider, Unknown Social History Tobacco Use Types Packs/Day Years [...] 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 Answer Date of Assessment Author Status Yes 10/11/2020 10:01 AM EST Steviet Lottiei ve * Are you blind or do [...] documented as of this encounter Care Teams Corporate Tutor Relationship Specialty Start Date End Date Eneida Daniels MD [address] [place] [address] PCP - General 08/16/12 07/17/23 Devante Correa MD [address] [place] [address] PCP - General Family Medicine 07/18/23 07/19/23 Melissa Ruth MD [address] [place] [address] PCP - General Family Medicine 07/20/23 Tomas Gracia OD [address] [place] [address] Referring Physician Optometry 01/28/18 Tesha Garcia PAC [address] [place] [address] Physician Embossed Or Impressed Lettering Painter Physician Embossed Or Impressed Lettering Painter 11/15/19 Rodolfo Henry MD [address] [place] [address] Surgeon Otolaryngology 01/02/22 Angelica Chiu MD [address] [place] [address] [phone] Consulting Physician Endocrinology 10/03/24 Vane Angeles, [facility] [address] [place] [address] Physician Embossed Or Impressed Lettering Painter Urology 10/05/24 Boom Jauregui MD [address] [place] [address] Consulting Physician Urology 10/05/24 documented as of this encounter
--- OUTSIDE RECORDS SUMMARY | 2025-01-15 20:36 | XMS_ITS | Encounter Summary ---
Author Organization [facility] Address [address] [id number] Care Team Providers Care Air Traffic Control Specialist Name Role Phone Eneida Daniels MD Primary Care Provider + Vitaliy Minor MD Unavailable Unavailable Eneida Daniels MD Unavailable + Angelica Chiu MD Unavailable [phone] [facility] Unavailable [phone] Provider, Unknown Unavailable Unavailable Enedia Daniels MD Unavailable + Provider, Unknown Unavailable Unavailable Tomas Gracia OD Unavailable [phone] Tesha Garcia PAC Unavailable Unavailable Rodolfo Henry MD Unavailable [phone] Devante Correa MD Primary Care Provider +[phone]- Melissa Ruth MD Primary Care Provider +[phone] Angelica Chiu MD Unavailable + [phone] Vane Angeles PAC Unavailable [phone] Boom aJuregui MD Unavailable [phone] Encounter Details Date Type Department Care Team (Late st Contact Info) Description 07/28/2010 Hospital Visit [facility] OUTPATIENT Tesha Garcia, PAC Social History Tobacco Use Types Packs/Day Years [...] Procedure Name Priority Date/Time Associated Diagnosis Comments MR BRAIN W WO CONTRAST 07/28/2010 6:40 AM EDT documented in this encounter Results * MRI BRAIN W WO CONTRAST (07/28/2010 6:40 AM EDT) Anatomical Region Laterality Modality Head Magnetic Resonan ce 07/28/2010 6:40 AM EDT Narrative 07/28/2010 8:37 AM EDT ? DATE: ?07/28/2010 ?6:40 ? ORDERED EXAM: ?MRI BRAIN W/O AND W/ CONTRAST ? EXAM: ??07/28/10 MRI BRAIN WITH AND WITHOUT CONTRAST ? INDICATION: ??Asymmetric hearing loss, rule out acoustic neuroma. ? COMPARISON: ??None. ? TECHNIQUE: ??Sagittal T1 weighted, axial T2 weighted inversion recovery and ? susceptibility images of the whole brain were obtained prior to contrast. ? This was followed by thin section, precontrast and postcontrast imaging ? through the posterior fossa. ? FINDINGS: ??There are a few nonspecific small foci of increased T2 signal in ? the periventricular and subcortical white matter of both cerebral ? hemispheres of unlikely clinical significance. ??There is no mass or mass ? effect. ??There is no evidence of an infarct or demyelinating disease. ? The mid brain and posterior fossa structures are unremarkable. ? Specifically, there is no mass along the course of the seventh and eighth ? nerve root complexes to suggest an acoustic schwannoma. ??The craniocervical ? junction is within normal limits. ??There is no evidence of a pituitary mass. ?There are normal flow-voids within the major intracranial vessels at the ? level of the skull base. ? IMPRESSION: ??No evidence of acoustic neuroma. ? THIS IS AN ELECTRONICALLY VERIFIED REPORT ? 07/28/2010 1:40 PM: ??Yovani Ramirez MD ? end of result us Tesha Garcia PAC IMG MRI ORDERABLES Final Resul t documented in this encounter Visit Diagnoses Not on filedocumented in this encounter Additional Health Concerns Assessment Noted Time A Depression follow-up plan has been documented for the patient 05/09/2009 8:13 AM EDT documented as of this encounter Care Teams Air Traffic Control Specialist Relationship Specialty Start Date End Date Eneida Daniels MD [address] [place] [address] PCP - General 08/16/12 07/17/23 Vitaliy Minor MD PCP - Hospital (change to care team) 04/20/11 09/30/11 Eneida Daniels MD [address] [place] [address] PCP - Hospital (change to care team) 09/26/09 04/19/11 Angelica Chiu MD [facility] [address] [place] [address] PCP - Internal Med Diab Endo (change to care team) 02/20/11 05/28/16 Jass Saez MD [address] [place] [address] [place] [phone] PCP - Internal Med Diab Endo (change to care team) 11/17/10 02/19/11 Provider, Unknown PCP - Hospital (change to care team) 10/01/11 10/04/11 Eneida Daniels MD [address] [place] [address] PCP - Hospital (change to care team) 10/05/11 08/17/12 Provider, Unknown PCP - Hospital (change to care team) 08/18/12 05/20/16 Devante Correa MD [address] [place] [address] [phone] PCP - General Family Medicine 07/18/23 07/19/23 Melissa Ruth MD [address] [place] [address] 185[address] PCP - General Family Medicine 07/20/23 Tomas Gracia, SARAH [address] [place] [address] Referring Physician Optometry 01/28/18 Tesha Garcia PAC [address] [place] [address] Physician Architect Manager Physician Architect Manager 11/15/19 Rodolfo Henry MD [address] [place] [address] Surgeon Otolaryngology 01/02/22 Angelica Chiu MD [address] [place] [address] [phone] Consulting Physician Endocrinology 10/03/24 Vane Angeles, PAC [facility] [place] [address] Physician Architect Manager Urology 10/05/24 Boom Jauregui MD [address] [place] [address] Consulting Physician Urology 10/05/24 documented as of this encounter
--- OUTSIDE RECORDS SUMMARY | 2025-01-15 20:36 | XMS_ITS | Encounter Summary ---
Author [facility] Address [address] [place] [address] Care Team Providers Care Cook Fish And Chips Name Role Phone Eneida Daniels MD Primary Care Provider [phone] Tomas Gracia OD Unavailable [phone] Tesha Garcia PAC Unavailable Unavailable Rodolfo Henry MD Unavailable [phone] Devante Correa MD Primary Care Provider [phone] Melissa Ruth MD Primary Care Provider [phone] Angelica Chiu MD Unavailable [phone] Vaen Angeles PAC Unavailable [phone] Boom Jauregui MD Unavailable [phone] Encounter Details Date Type Department Care Team (Late st Contact [facility]) Description 05/27/[address] 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 Not [...] Telephone Encounter - Eneida Daniels MD - 05/31/2017 6:26 PM EDTQuick Note: Reviewed during OV today documented in this encounter Plan of Treatment Not on file documented as of this encounter Procedures Procedure Name Priority Date/Time Associated Diagnosis Comments COMPREHENSIVE METABOLIC PANEL Routine 05/25/2017 9:00 AM EDT Pure hypercholesterolemia documented in this encounter Results * (ABNORMAL) COMPREHENSIVE METABOLIC PANEL (05/25/2017 9:00 AM EDT) Sodium 141 133 - 145 mEq/L [facility] Potassium 4.8 3.3 - 5.3 mEq/L [facility] Chloride 106 96 - 108 mEq/L [facility] Carbon Dioxide 22 21 - 30 mEq/L [facility] Anion Gap 13 mEq/L [facility] Blood Urea Nitrogen 20(H) 6 - 19 mg/dL [facility] Creatinine 0.93 0.50 - 1.30 mg/dL [facility] BUN Creatinine Ratio 21.5 [facility] Glucose 96 70 - 99 mg/dL [facility] Protein 6.2 5.9 - 8.4 g/dL [facility] Albumin 4.2 3.2 - 5.2 g/dL [facility] Globulin 2.0 2.0 - 3.5 g/dL [facility] Albumin/Globuli n Ratio 2.1 [facility] Bilirubin 1.1(H) 0.0 - 1.0 mg/dL [facility] Calcium 9.4 8.6 - 10.4 mg/dL [facility] Alkaline Phosphatase 117 39 - 117 U/L [facility] AST 25 0 - 37 U/L [facility] ALT 44(H) 0 - 40 U/L [facility] EGFR Non- 60 >60 [facility] EGFR >60 >60 [facility] Comment: -- eGFR UNITS OF MEASURE -- mL/min/1.73m(2) Comment EGFR SEE BELOW [facility] Comment:This test has multip le limitations. Please see [email or web address]. Blood specimen (specimen) 05/25/2017 9:00 AM EDT 05/25/2017 2:45 PM EDT us Eneida Daniels MD CHEMISTRY ORDERABLES Final Result [facility] [address] [place] [address] documented in this encounter Visit Diagnoses Diagnosis Pure hypercholesterolemia documented in this encounter Additional Health Concerns Assessment Noted Time A Depression follow-up plan has been documented for the patient 05/09/2009 8:13 AM EDT documented as of this encounter Care Teams Cook Fish And Chips Relationship Specialty Start Date End Date Eneida Daniels MD [address] [place] [address] PCP - General 08/16/12 07/17/23 Devante Correa MD [address] [place] [address] [phone] PCP - General Family Medicine 07/18/23 07/19/23 Melissa Ruth MD [address] [place] [address] PCP - General Family Medicine 07/20/23 Tomas Gracia OD [address] [place] [address] Referring Physician Optometry 01/28/18 Tesha Garcia PAC [address] [place] [address] Physician Hot Knife Foxing Cutter Physician Hot Knife Foxing Cutter 11/15/19 Rodolfo Henry MD [address] [place] [address]22 Surgeon Otolaryngology 01/02/22 Angelica Chiu MD [address] [place] [address] [phone] Consulting Physician Endocrinology 10/03/24 Vane Angeles, PAC [facility] [place] [address] Physician Hot Knife Foxing Cutter Urology 10/05/24 Boom Jauregui MD [address] [place] [address] Consulting Physician Urology 10/05/24 documented as of this encounter
--- OUTSIDE RECORDS SUMMARY | 2025-01-15 20:36 | XMS_ITS | Encounter Summary ---
Author [facility] Address [address] [address] Care Team Providers Care Operator Technician Name Role Phone Eneida Daniels MD Primary Care Provider + Vitaliy Minor MD Unavailable Unavailable Eneida Daniels MD Unavailable + Angelica Chiu MD Unavailable [phone] [facility] Unavailable [phone] Provider, Unknown Unavailable Unavailable Eneida Daniels MD Unavailable + Provider, Unknown Unavailable Unavailable Tomas Gracia OD Unavailable [phone] Tesha Garcia PAC Unavailable Unavailable Rodolfo Henry MD Unavailable [phone] Devante Correa MD Primary Care Provider +[phone]- Melissa Ruth MD Primary Care Provider +[phone] Angelica Chiu MD Unavailable + [phone] Vane Angeles PAC Unavailable [phone] Boom Jauregui MD Unavailable [phone] Encounter Details Date Type Department Care Team (Late st Contact Info) Description 09/17/2008 Hospital Visit [facility] OUTPATIENT Provider, Unknown Social History Tobacco Use Types Packs/Day [...] on filedocumented in this encounter Care Teams Operator Technician Relationship Specialty Start Date End Date Eneida Daniels MD [address] [place] [address] PCP - General 08/16/12 07/17/23 Vitaliy Minor MD PCP - Hospital (change to care team) 04/20/11 09/30/11 Eneida Daniels MD [address] [place] [address] PCP - Hospital (change to care team) 09/26/09 04/19/11 Angelica Chiu MD [facility] [address] [place] [phone] PCP - Internal Med Diab Endo (change to care team) 02/20/11 05/28/16 Jass Saez MD [address] [place] [address] [place] [phone] PCP - Internal Med Diab Endo (change to care team) 11/17/10 02/19/11 Provider, Unknown PCP - Hospital (change to care team) 10/01/11 10/04/11 Eneida Daniels MD [address] [place] [address] PCP - Hospital (change to care team) 10/05/11 08/17/12 Provider, Unknown PCP - Hospital (change to care team) 08/18/12 05/20/16 Devante Correa MD [address] [place] [address] PCP - General Family Medicine 07/18/23 07/19/23 Melissa Ruth MD [address] [place] [address] PCP - General Family Medicine 07/20/23 Tomas Gracia OD [address] [place] [address] Referring Physician Optometry 01/28/18 Tesha Garcia PAC [address] [place] [address] Physician High Pressure Cleaner Physician High Pressure Cleaner 11/15/19 Rodolfo Henry MD [address] [place] [address]326 Surgeon Otolaryngology 01/02/22 Angelica Chiu MD [facility] [address] [place] [address] [phone] Consulting Physician Endocrinology 10/03/24 Vane Angeles, JENNIFER [address] [place] [address] Physician High Pressure Cleaner Urology 10/05/24 Boom Jauregui MD [address] [place] [address] Consulting Physician Urology 10/05/24 documented as of this encounter
--- OUTSIDE RECORDS SUMMARY | 2025-01-15 20:36 | XMS_ITS | Encounter Summary ---
Author Organization [facility] Address [address] [place] [address] Care Team Providers Care Chemical Laboratory Technician Name Role Phone Tomas Gracia OD Unavailable [phone] Rodolfo Henry MD Unavailable [phone] Melissa Ruth MD Primary Care Provider [phone] Angelica Chiu MD Unavailable [phone] Vane Angeles PAC Unavailable [phone] Boom Jauregui MD Unavailable [phone] Reason for Visit * Reason Onset Date Comments Labs Only 11/06/2024 Encounter Details Date Type Department Care Team (Late st Contact Info) Description 11/06/2024 Telephone [facility] Family [facility] [place] [address] [place] [address] Melissa Ruth MD [address] [place] [address] Labs Only Social History Tobacco Use Types Packs/Day Years [...] How often do you attend chur or voodoo services? Never 07/11/2024 Do you belong to any clubs o r organizations such as presybeterian groups, unions, fraternal or athletic groups, or [...] Date Recorded Patient Health Questionnaire-2 Score 0 07/11/2024 [facility] Occupat ional Health - Occupational Stress [...] the money to buy more. Never true 09/06/20 Within the past 12 months, t he food you bought just didn't last and you didn't have money to get more. 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 Answer Date of Assessment Author Status Yes 07/11/2024 8:39 PM EDT Randy Ritter e * Are you blind or do you [...] encounter Miscellaneous Notes * Telephone Encounter - Randy Ritter - 11/06/2024 1:17 PM EST Call to Jennifer Grimm Relayed message below. Pt states she will go have labs done tomorrow. Team, please check back on Wednesday to ensure that this was completed. \ * Telephone Encounter - Hazel Ansari - 11/06/2024 12:23 PM EST [facility] MESSAGE Name of Caller: Jennifer Title: Patient Calling from: N/A Best Contact Number: Mobile (mobile) Details: Serafin calling in regards to patient's order for CT ABDOMEN PELVIS W WO CONTRAST (6:22). He is advising patient needs to have lab work (CMP or BMP) done prior to her 11/10/24 appointment. There is an order on file: COMPREHENSIVE METABOLIC PANEL (10/03/2024 13:25) Please contact patient to advise. Message routed to Clinical pool. documented in this encounter Plan of Treatment Not on file documented as of this encounter Visit Diagnoses Not on filedocumented in this encounter Additional Health Concerns Assessment Noted Time PHQ-9 Depression Total Score: 0 07/11/20 8:43 PM EDT A Depression follow-up plan has been documented for the patient 07/11/2024 8:43 PM EDT documented as of this encounter Care Teams Chemical Laboratory Technician Relationship Specialty Start Date End Date Melissa Ruth MD [address] [place] [address] PCP - General Family Medicine 07/20/23 Tomas Gracia OD [address] [place] [address] Referring Physician Optometry 01/28/18 Rodolfo Henry MD [address] [place] [address] Surgeon Otolaryngology 01/02/22 Angelica Chiu MD [address] [place] [address] [phone] Consulting Physician Endocrinology 10/03/24 Vane Angeles PAC [address] [place] [address] Physician Secure Software Assessor Urology 10/05/24 Boom Jauregui MD [address] [place] [address] Consulting Physician Urology 10/05/24 documented as of this encounter
--- OUTSIDE RECORDS SUMMARY | 2025-01-15 20:36 | XMS_ITS | Encounter Summary ---
[facility] Address [address] [place] [address] Care Team Providers Care Payment Manager Name Role Phone Eneida Daniels MD Primary Care Provider + Vitaliy Minor MD Unavailable Unavailable Eneida Daniels MD Unavailable + Angelica Chiu MD Unavailable [phone] [facility] MD Unavailable [phone] Provider, Unknown Unavailable Unavailable Eneida Daniels MD Unavailable + Provider, Unknown Unavailable Unavailable Tomas Gracia OD Unavailable [phone] Tesha Garcia PAC Unavailable Unavailable Rodolfo Henry MD Unavailable [phone] Devante Correa MD Primary Care Provider +1-2 Melissa Ruth MD Primary Care Provider +1-2 Angelica Chiu MD Unavailable +[phone] Vane Angeles PAC Unavailable [phone] Boom Jauregui MD Unavailable [phone] Encounter Details Date Type Department Care Team (Late st Contact Info) Description 02/09/2011 Hospital Visit [facility] OUTPATIENT Anneliese Rome MD [address] [facility] [address] [place] [address] Social History Tobacco Use Types Packs/Day Years [...] PM EST documented as of this encounter H&P Notes * Anneliese Rome MD - 02/17/2011 7:41 AM EDT JENNIFER BARNHART [id number] ADM: 02/09/2011 LOC: [facility] DATE OF : 1950 DATE OF EVALUATION: 01/21/2011 CHIEF COMPLAINT: Hypercalcemia, hyperparathyroidism. VASCULAR TECHNICIAN: Angelica Chiu M.D. PHYSICIAN: Eneida Daniels M.D. HISTORY OF PRESENT ILLNESS: The patient comes in for consultation at the request of Dr. Chiu regarding management of hypercalcemia and hyperparathyroidism. The patient states that overall she has been feeling well. I had seen her back in 2007 for evaluation regarding hyperparathyroidism, but at that time she was not ready to have surgery. Recently she has had reevaluation and has developed worsening osteopenia with a left femoral neck score of -2.3. She has seen Dr. Chiu regarding reevaluation of hyperparathyroidism and Dr. Chiu has encouraged her to reconsider operative treatment. She states that she has not had any fractures or kidney stones. She has had a bit of fatigue. She has not had any mood swings, memory change, muscle aches or joint pain. ACTIVE MEDICAL PROBLEMS: Osteopenia, hearing loss, occasional PVCs, hypertension. MEDICATIONS: Lisinopril 10 mg per day, simvastatin 10 mg per day, sertraline 50 mg per day, multivitamins. ALLERGIES: Penicillin, sulfa, tetanus. SOCIAL HISTORY: She is . Does not smoke. 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 FAMILY HISTORY: Negative for hyperparathyroidism or other endocrine tumors. REVIEW OF SYSTEMS: For complete review of systems, please see form that has been reviewed, signed and dated 01/21/11. She has lost some weight through [employer]. She has had no fever or change in appetite, no change in vision. She does have some hearing loss. She has had no hoarseness. She does have occasional palpitations. She denies any angina or infarction. Denies wheezing or stridor. She does have dyspepsia, occasional diarrhea alternating with constipation. Denies blood in the stool. Denies hematuria or dysuria. She does have mild urinary incontinence. She did have a kidney stone back in 1982. Denies muscle weakness, joint pain or back pain. Denies any skin rash or lesion. Denies diabetes, polyuria or polydipsia. Denies seizure, stroke, TIA, loss of strength or sensation. Denies DVT, pulmonary embolism, abnormal bleeding, anxiety or depression. PHYSICAL EXAMINATION: Healthy appearing. Blood pressure is 130/84, heart rate 90, respiratory rate 16, temperature 98. Weight is 178. Scalp: No lesion. Sclerae anicteric. Mucous membranes moist. Neck: Trachea is midline, thyroid not enlarged, no mass. Chest clear, no rales, rhonchi or wheezes. Heart sounds regular with no murmur or gallop. Pulses: 2+ dorsalis pedis. Back: No spinal or CVA tenderness. Abdomen: Soft, nontender, no masses or hepatosplenomegaly. Lymph nodes: No jugular, cervical, supraclavicular or axillary adenopathy. Extremities well perfused, no edema. Records from Dr. Chiu reviewed. Laboratory studies reviewed. Calcium 10.5. Intact parathyroid hormone level of 107. A sestamibi scan had been performed back in 2007. This was reviewed. There is a focal area of activity seen adjacent to the right thyroid lobe, thought to be a possible abnormal parathyroid gland. Neck ultrasound was performed. I did not see anything abnormal on the right side. On the left side in the region of the mid portion of the left thyroid there was an ovoid hypoechoic area noted. This was similar to what was seen back in 2007. It measured 1.04 x 0.86 x 0.5 cm. This was thought to be consistent with an enlarged parathyroid gland. ASSESSMENT: Primary hyperparathyroidism. Imaging studies are showing an area on the right side on sestamibi scan from 2008. Ultrasound shows an area on the left. I spoke with the patient regarding the discordant imaging studies. I told her that I thought we should repeat her sestamibi scan to see if there is any difference between this study and the 2008 study. I do think she would benefit from parathyroidectomy. We do have to be prepared for multiglandular disease given the imaging studies. Risks of parathyroidectomy including injury to recurrent laryngeal nerve with temporary or permanent voice change, recurrent or persistent hyperparathyroidism, hypoparathyroidism, neck scar and neck numbness were all discussed. DICTATED BY: Anneliese Rome MD Attending [facility] [employer] [phone] / [id number] cc: Eneida Daniels MD, Angelica Rome MD PRELIMINARY REPORT UNTIL SIGNED BY ATTENDING PHYSICIAN Working Document - Sign in [facility] ANNELIESE ROME MD ELECTRONICALLY SIGNED 02/17/2011 7:39 documented in this encounter OR Notes * Op Note - Anneliese Rome MD - 02/17/2011 7:37 AM EDT JENNIFER BARNHART [id number] OR DATE: 02/09/2011 LOC: [facility] PREOPERATIVE DIAGNOSIS: Symptomatic primary hyperparathyroidism. 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 PROCEDURE: Bilateral neck exploration, subtotal parathyroidectomy, removing the right superior, right inferior, left superior, and portion of the left inferior parathyroid glands, cryopreservation of parathyroid tissue. SURGEON: Anneliese Rome M.D. VEHICLE MAINTENANCE SUPERVISOR: Silverio Jarrett MD-ARABELLA-3 ANESTHESIA: General. OPERATIVE FINDINGS: Multiglandular parathyroid enlargement. The right superior gland measured 1.8 x 1.2 x 0.6 cm. The right inferior parathyroid gland measured approximately 7 x 2 mm. The left superior parathyroid gland was 1.9 x 0.9 x 0.5 cm, left inferior parathyroid gland 5 x 3 mm. Rapid PTH assay went from 103.6 pg/mL preoperatively to 81 pg/mL 10 minutes after excising the left superior gland and then to 39.7 pg/mL at the 10 minute post-excision level for the left superior gland and then to 32.7 pg/mL on the 20 minute post-excision level. Finally, to 24 pg/mL 10 minutes after excising the right inferior gland. BRIEF HISTORY: The patient has symptomatic primary hyperparathyroidism. Neck ultrasound done as part of the parathyroid protocol showed a hypoechoic nodule in the left neck consistent with an enlarged parathyroid gland. Sestamibi scan with SPECT and CT imaging showed an increased area of activity in the right neck based on imaging studies the plan was for bilateral neck exploration for presumed multiglandular disease. Perioperative antibiotics were not indicated and not given. DVT PROPHYLAXIS: Pneumatic compression stockings. DESCRIPTION OF PROCEDURE: The patient was brought to the operating room and placed in supine position, general anesthesia was given. The patient's neck and chest were prepped with Betadine and operative areas were draped. Local anesthesia was injected into the skin and subcutaneous tissue in the lower neck. A lower transverse cervical incision was made. The subcutaneous tissues and platysma were divided with cautery. Subplatysmal skin flaps were raised superiorly and inferiorly. Midline fascia was opened, the strap muscles dissected off the thyroid anteriorly. We explored the right side first. Strap muscles were dissected off the right thyroid lobe. Middle thyroid vein was ligated and divided. The right recurrent laryngeal nerve was identified. What appeared to be an enlarged right parathyroid gland was identified. Initially I thought that this was probably the inferior gland given that it was located in the mid to lower third of the right thyroid. This appeared to be a clearly enlarged gland and it corresponded to the findings on the sestamibi scan. On our initial examination in the right neck, I did not see any evidence of any other abnormal parathyroid tissue. We now mobilized the right parathyroid gland free from the surrounding tissues. The recurrent laryngeal nerve was kept in view and protected. The vascular pedicle was identified, dissected free, ligated, clipped and divided. The enlarged parathyroid gland was removed with its capsule intact. It measured 1.8 x 1.2 x 0.6 cm. The gland was bisected and a portion was sent for frozen section and the rest was placed into ice saline solution. We did examine the right side further but I did not see any evidence of abnormal parathyroid tissue; we therefore just directed our attention to the left neck. The strap muscles were dissected off the left thyroid lobe. Middle thyroid vein was ligated and divided. The left recurrent laryngeal nerve was identified. What appeared to be a normal or slightly enlarged left inferior parathyroid gland was identified. It was located at the lower aspect of the left thyroid lobe. This appeared to be about 5 x 3 mm. We now identified the left superior parathyroid gland. This was located at the upper to mid aspect of the left thyroid lobe. It was going posteriorly. This appeared to be a clearly enlarged abnormal parathyroid gland. We now mobilized the left superior parathyroid gland free from the surrounding tissues. At this time, we got the results of our first PTH assay back. Our preoperative level was 103.6 pg/mL. A level sent 10 minutes after excising the right superior parathyroid gland dropped only to 81 pg/mL indicating additional hyperfunctioning parathyroid tissue. We now did a biopsy of the left inferior parathyroid gland to confirm that this was parathyroid tissue and in fact it was. We now mobilized the left superior parathyroid gland further and the left recurrent laryngeal nerve was kept in view and protected. The enlarged parathyroid gland was mobilized and dissected free from the surrounding tissues. The vascular pedicle was identified, dissected, ligated, clipped and divided. The left inferior parathyroid gland measured 1.9 x 0.9 x 0.5 cm. This was bisected and a portion was sent for frozen section and the rest was placed into ice saline solution. We now reexplored the right neck and on reexploration I did not see any evidence of an abnormal parathyroid gland located superiorly in the neck. I therefore reconsidered the initial right parathyroid glands position and thought that in fact maybe that was the superior gland. We worked further down in the lower aspect of the right neck and I eventually found the right inferior parathyroid gland below the right thyroid lobe. This appeared to be at the upper normal size at 7 x 2 mm. A small biopsy of this was taken and sent for frozen section confirming it was parathyroid tissue. 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 I felt given the situation that it would be best to do a subtotal parathyroidectomy and I felt that the left inferior parathyroid gland had the most normal appearance, it was also located in the more predictable location. The right inferior parathyroid gland was quite low in the neck and also appeared to be slightly larger than the left side. Reexamination of the left inferior parathyroid remnant showed that it appeared well perfused. We marked this position with a 4-0 Prolene suture and medium clip. The right inferior parathyroid gland was now dissected back to its pedicle, which was ligated, clipped and divided. The right inferior parathyroid gland was removed. The PTH level 10 minutes after excising the left superior gland did drop appropriately from 81 to 39.7 and the 20 minute post-excision level dropped further to 32.7 pg/mL. A level sent 10 minutes after excising the right inferior gland dropped further to 24 pg/mL. We did take the majority of the left superior, right superior and all of the right inferior parathyroid gland and these were cut up into multiple small fragments and sent to the lab for cryopreservation. Operative areas were reinspected. Hemostasis was complete. The left inferior parathyroid remnant appeared to be intact and well perfused. The midline fascia was closed with running 3-0 Vicryl suture, platysma was c losed with running 4-0 Vicryl suture and the skin was closed with subcuticular 4-0 Monocryl. Dermabond was applied. The patient tolerated the procedure well. All counts were correct. DICTATED BY: Anneliese Rome MD Attending [facility] [employer] [id number] /[id number] cc: Angelica Chiu MD, Silverio Jarrett MD-[facility]-3 Anneliese Daniels MD PRELIMINARY REPORT UNTIL SIGNED BY ATTENDING PHYSICIAN Working Document - Sign in [facility] ANNELIESE ROME MD ELECTRONICALLY SIGNED 02/17/2011 7:36 documented in this encounter Plan of Treatment Not on file documented as of this encounter Procedures Procedure Name Priority Date/Time Associated Diagnosis Comments CALCIUM Routine 02/10/2011 7:15 AM EDT CALCIUM Routine 02/09/2011 11:15 AM EDT BLOOD BANK SPECIMEN TO HOLD Routine 02/09/2011 10:37 AM EDT PARATHYROID HORMONE INTEROPERATIVE Routine 02/09/2011 9:02 AM EDT PARATHYROID HORMONE INTEROPERATIVE Routine 02/09/2011 8:54 AM EDT PARATHYROID HORMONE INTEROPERATIVE Routine 02/09/2011 8:37 AM EDT PARATHYROID HORMONE INTEROPERATIVE Routine 02/09/2011 8:15 AM EDT PARATHYROID HORMONE INTEROPERATIVE Routine 02/09/2011 7:34 AM EDT SURGICAL PATHOLOGY TISSUE SPECIMEN Routine 02/09/2011 12:00 AM EDT documented in this encounter Results * CALCIUM (02/10/2011 7:15 AM EDT) Calcium 9.1 8.6 - 10.4 mg/dL [facility] 02/10/2011 7:15 AM EDT 02/10/2011 7:19 AM EDT us Unknown Provider CHEMISTRY ORDERABLES Final Resu lt Performing Organization Address [facility] de Phone Number [facility] [address] [facility] [place] [address] * CALCIUM (02/09/2011 11:15 AM EDT) Calcium 9.4 8.6 - 10.4 mg/dL [facility] 02/09/2011 11:1 5 AM EDT 02/09/2011 11:21 AM EDT us Unknown Provider CHEMISTRY ORDERABLES Final Resu lt Performing Organization Address [facility] de Phone Number [facility] [address] [facility] [place] [address] * BB SPECIMEN TO HOLD (02/09/2011 10:37 AM EDT) Results Blood Bank SEE BELOW [facility] Comment: BB EXTRA SPEC: ? RECEIVED 3 DAY HOLD 3 DAY HOLD 02/09/2011 10:3 7 AM EDT 02/09/2011 10:45 AM EDT us Thai Gant MD BLOOD BANK ORDERABLES Final R esult Performing Organization Address [facility] de Phone Number [facility] [address] [facility] [place] [address] * PTH (INTEROPERATIVE) (02/09/2011 9:02 AM EDT) Parathyroid Hormone Interoperative 24.0 15.0 - 65.0 pg/mL [facility] Comment: Called to Yahaira Chang ??at 09:29 on 02/09/2011 by contot ??and correctly read back. 02/09/2011 9:02 AM EDT 02/09/2011 9:11 AM EDT us Anneliese Rome MD CHEMISTRY ORDERABLES E dited Performing Organization Address [facility] Co de Phone Number [facility] [address] [facility] [place] [address] * PTH (INTEROPERATIVE) (02/09/2011 8:54 AM EDT) Parathyroid Hormone Interoperative 32.7 15.0 - 65.0 pg/mL [facility] 02/09/2011 8:54 AM EDT 02/09/2011 8:59 AM EDT us Anneliese Rome MD CHEMISTRY ORDERABLES F inal Result Performing Organization Address [facility] Co de Phone Number [facility] [address] [facility] [place] [address] * PTH (INTEROPERATIVE) (02/09/2011 8:37 AM EDT) Parathyroid Hormone Interoperative 39.7 15.0 - 65.0 pg/mL [facility] Comment: Called to Chyna Montanez ??at 09:03 on 02/09/2011 by contot ??and correctly read back. 02/09/2011 8:37 AM EDT 02/09/2011 8:44 AM EDT us Anneliese Rome MD CHEMISTRY ORDERABLES E dited Performing Organization Address [facility] Co de Phone Number [facility] [address] [facility] [place] [address] * (ABNORMAL) PTH (INTEROPERATIVE) (02/09/2011 8:15 AM EDT) Parathyroid Hormone Interoperative 81.0(H) 15.0 - 65.0 pg/mL [facility] Comment: Called to Chyna Montanez at 08:47 on 02/09/2011 by contot ??and correctly read back. 02/09/2011 8:15 AM EDT 02/09/2011 8:26 AM EDT Anneliese Rome MD CHEMISTRY ORDERABLES F inal Result Performing Organization Address City/[facility]/ZIP Co de Phone Number [facility] [address] [facility] [place] [address] * (ABNORMAL) PTH (INTEROPERATIVE) (02/09/2011 7:34 AM EDT) Parathyroid Hormone Interoperative 103.6(H) 15.0 - 65.0 pg/mL [facility] Comment: Called to Yahaira Chang ??at 08:03 on 02/09/2011 by contot ??and correctly read back. 02/09/2011 7:34 AM EDT 02/09/2011 7:42 AM EDT Anneliese Rome MD CHEMISTRY ORDERABLES F inal Result [facility] [address] [facility] [place] [address] * SURGICAL PATHOLOGY TISSUE SPECIMEN (02/09/2011 12:00 AM EDT) 02/09/2011 02/09/2011 Narrative [facility] - 02/09/2011 12:00 AM EDT CASE: [id number] PATIENT: JENNIFER BARNHART SPECIMEN: A. PARATHYROID, RIGHT SUPERIOR B. PARATHYROID, LEFT INFERIOR C. PARATHYROID, LEFT SUPERIOR D. PARATHYROID, RIGHT INFERIOR E. REMAINDER OF RIGHT SUPERIOR PARATHYROID F. REMAINDER OF LEFT SUPERIOR PARATHYROID ?Client: [facility] FINAL DIAGNOSIS: (A) ??Portion, right superior parathyroid, biopsy: ??Hypercellular parathyroid tissue. (B) ??Portion, left inferior parathyroid, biopsy: ??Fragment of benign parathyroid tissue. (C) ??Left superior parathyroid, biopsy: ??Hypercellular parathyroid tissue. (D) ??Portion, right inferior parathyroid, #2, biopsy: ??Fragment of benign parathyroid tissue. (E) ??Remainder of right superior parathyroid, excision: ??Hypercellular parathyroid tissue. (F) ??Remainder of left superior parathyroid, excision: ??Hypercellular parathyroid tissue. ERH/mlc ??02/10/11 CLINICAL HISTORY: ??HPT. INTRAOPERATIVE CONSULTATION: FROZEN SECTION DIAGNOSIS: (A) Hypercellular parathyroid gland. ??(ERH) ??Intraoperative read-back performed. (B) Hypercellular parathyroid tissue. ??(ERH) ??Intraoperative read-back performed. (C) Hypercellular parathyroid gland. ??(ERH) ??Intraoperative read-back performed. (D) Fragment of parathyroid tissue. ??(ERH) ??Intraoperative read-back performed. GROSS DESCRIPTION: (A) The specimen is received fresh for frozen section, labeled Jennifer Alfa and portion superior parathyroid and consists of a 0.3 gram, 1.7 x 0.6 x 0.3 cm nicole-brown soft tissue. ??Specimen submitted in toto for frozen section in one cassette. ??(1NS) (B) The specimen is received fresh for frozen section, labeled Jennifer Alfa and portion of left inferior parathyroid and consists of a 0.3 cm nicole-pink soft tissue. ??Specimen is submitted in toto for frozen section in one cassette. ??(1NS) (C) The specimen is received fresh for frozen section, labeled Jennifer Alfa and left superior parathyroid and consists of a 1.6 x 0.6 x 0.3 cm nicole-brown soft tissue nodule. ??Specimen submitted in toto for frozen section in one cassette. ??(1NS) (D) The specimen is received fresh for frozen section, labeled Jennifer Alfa and ? portion right inferior #2 parathyroid and consists of a 0.5 x 0.3 x 0.1 cm nicole-brown soft tissue nodule. ??Specimen submitted in toto for frozen section in one cassette. ??(1NS) PABLO/randy ??02/09/11 (E) The specimen is received in formalin labeled Jennifer Alfa and remainder of right superior parathyroid. ??It consists of a 0.9 x 0.5 x 0.4 cm pink-nicole tissue fragment. ??(1NS - 1 cassette) (F) The specimen is received in formalin labeled Jennifer Alfa and remainder of left superior parathyroid. ??It consists of a 0.7 x 0.4 x 0.1 cm pink-nicole tissue fragment. (1NS - 1 cassette) CC/vla ??02/09/11 NOTE: ??The above diagnosis reflects review of microscopic sections. Tori Locke MD ??Electronically signed 02/10/2011 3:56:58PM Anneliese Rome MD PATHOLOGY/CYTOLOGY ORD ERABLES Final Result [facility] [address] [place] [address] documented in this encounter Visit Diagnoses Not on filedocumented in this encounter Additional Health Concerns Assessment Noted Time A Depression follow-up plan has been documented for the patient 05/09/2009 8:13 AM EDT documented as of this encounter Care Teams Payment Manager Relationship Specialty Start Date End Date Eneida Daniels MD [address] [place] [address] PCP - General 08/16/12 07/17/23 Vitaliy Minor MD PCP - Hospital (change to care team) 04/20/11 09/30/11 Eneida Daniels MD [address] [place] [address] PCP - Hospital (change to care team) 09/26/09 04/19/11 Angelica Chiu MD [address] [place] [id number] PCP - Internal Med Diab Endo (change to care team) 02/20/11 05/28/16 Jass Saez MD [address] [phone] PCP - Internal Med Diab Endo (change to care team) 11/17/10 02/19/11 Provider, Unknown PCP - Hospital (change to care team) 10/01/11 10/04/11 Eneida Daniels MD [address] [place] [id number] PCP - Hospital (change to care team) 10/05/11 08/17/12 Provider, Unknown PCP - Hospital (change to care team) 08/18/12 05/20/16 Devante Correa MD [address] [place] [phone] PCP - General Family Medicine 07/18/23 07/19/23 Melissa Ruth MD [address] [place] [id number] PCP - General Family Medicine 07/20/23 Tomas Gracia OD [address] [place] [address] Referring Physician Optometry 01/28/18 Tesha Garcia PAC [address] [place] [address] Physician Grocery Store Clerk Physician Grocery Store Clerk 11/15/19 Rodolfo Henry MD [address] [place] [address] [place] [address] Surgeon Otolaryngology 01/02/22 Angelica Chiu MD [facility] [address] [place] [phone] Consulting Physician Endocrinology 10/03/24 Vane Angeles PAC [address] [place] [address] Physician Grocery Store Clerk Urology 10/05/24 Boom Jauregui MD [address] [place] [address] Consulting Physician Urology 10/05/24 documented as of this encounter
[2025-01-15] MEDS: BUPivacaine MPF 0.25 % 10 ML VIAL INFILTRATI (22:03)
[2025-01-15 23:18] VITALS: BP 134/73; PULSE 75; RESP 16; TEMP 36.6; O2SAT 95
[2025-01-15 23:40] VITALS: BP 134/73; PULSE 75; RESP 16; TEMP 36.6; O2SAT 95
== END 2025-01-15 23:53 | disposition home or self-care (01) ==
PROVIDERS: Emergency Provider Emergency Medicine
DX: S62.101A Fracture of unspecified carpal bone, right wrist, initial encounter for closed fracture (principal); M54.2 Cervicalgia; R51.9 Headache, unspecified; M25.531 Pain in right wrist; W01.0XXA Fall on same level from slipping, tripping and stumbling without subsequent striking against object, initial encounter; Y93.9 Activity, unspecified; Y92.9 Unspecified place or not applicable; Y99.8 Other external cause status
CPT/HCPCS: 25605; 29125; 70450; 72125; 73110; 73130; 99284; J0665

== ENCOUNTER → 2025-01-15 16:42 | Outpatient (BNV) | payer SELFPAY | PROVIDERS: Visit Provider Radiology Diagnostic Radiology | DX: M50.30 Other cervical disc degeneration, unspecified cervical region (principal); S09.90XA Unspecified injury of head, initial encounter; S52.501A Unspecified fracture of the lower end of right radius, initial encounter for closed fracture | CPT/HCPCS: 70450; 72125; 73130 ==